=== PATIENT | male | born 1940 | race American Indian/Alaskan Native ===

== ENCOUNTER 2016-11-16 08:13 | Inpatient (IN) | payer MEDICARE, BC ==
[2016-11-16 08:46] LABS: HEMOGLOBIN 15.7 gm/dL (14.0-18.0); MEAN CORPUSCULAR HEMOGLOBIN 30.7 pg (25.0-35.0); MEAN CORPUSCULAR HGB CONC 34.1 g/dl (31.0-37.0); MEAN PLATELET VOLUME 8.8 fl (7.0-11.0); PLATELET COUNT 196 10^3/uL (120.0-450.0); RBC 5.12 10^6/uL (3.5-6.1); RED CELL DISTRIBUTION WIDTH 16.3 % (11.5-14.5); WHITE BLOOD COUNT 9.8 10^3/ul (4.5-11.0)
--- NOTE | 2016-11-16 08:48 | ED PDOC ---
Arrival/HPI - General Chief Complaint: Chest Pain Time Seen by Provider: 11/16/16 08:14 Historian: Patient, Family - History of Present Illness Narrative History of Present Illness (Text): 11/16/16 08:20 Darren Riggs is a 76 year old male, whose past medical history includes hypertension, prostate cancer in remission, and COPD, presents to the Emergency department complaining of chest pain that began this morning at around 06:30. Patient reports that he woke up, and while going up the stairs in his house he began to feel dullness and pressure on his chest. In addition to this he also had shortness of breath and dizziness. He states that the chest pain radiates to his left arm and at the moment it began the severity was at 6 out 10 pain, but is currently a 4 out 10. Patient notes that when using his rescue inhaler and massaged his chest, there was mild relief. Patient denies headache, fever, chills, cough, nausea, vomiting, diarrhea, diaphoresis, jaw pain, back pain, or other complaints. PMD: Dr. William Morris Time/Duration: 1-3 hours Symptom Onset: Sudden Symptom Course: Unchanged Quality: Pressure, Dullness (chest) Severity Level: 4 Activities at Onset: Light Modifying Factors (Text): None Context: Home Associated Symptoms (Text): dizziness and shortness of breath. pain radiates to left arm. Past Medical History - Provider Review Nursing Documentation Reviewed: Yes - Infectious Disease Hx of Infectious Diseases: None - Cardiac Hx Hypertension: Yes Hx Pacemaker: No - Pulmonary Hx Respiratory Disorders: No Hx Chronic Obstructive Pulmonary Disease (COPD): Yes Hx Sleep Apnea: Yes - Neurological Hx Paralysis: No - HEENT Hx HEENT Disorder: No - Renal Hx Renal Disorder: No - Hematological/Oncological Hx Blood Transfusions: No - Integumentary Hx Dermatological Disorder: No - Musculoskeletal/Rheumatological Hx Musculoskeletal Disorders: No - Gastrointestinal Hx Gastrointestinal Disorders: No - Genitourinary/Gynecological Hx Genitourinary Disorders: Yes Hx Prostate Problems: Yes - Psychiatric Hx Emotional Abuse: No Hx Physical Abuse: No Hx Substance Use: No - Anesthesia Hx Anesthesia Reactions: No Hx Malignant Hyperthermia: No - Suicidal Assessment Feels Threatened In Home Enviroment: No Family/Social History - Physician Review Nursing Documentation Reviewed: Yes Family/Social History: Unknown Family HX Smoking Status: Former Smoker Hx Alcohol Use: No Hx Substance Use: No Allergies/Home Meds Allergies/Adverse Reactions: Allergies No Known Allergies Allergy (Verified 06/17/15 14:03) Home Medications: Home Meds Medication Instructions Recorded Confirmed Tamsulosin [Flomax] 1 tab PO DAILY 06/17/15 11/16/16 Albuterol HFA [Ventolin HFA 90 1 puff IH BID 08/31/15 11/16/16 mcg/actuation (8 g)] Amlodipine Besylate [Norvasc] 5 mg PO DAILY 08/31/15 11/16/16 Ergocalciferol (Vitamin D2) 50,000 iu PO WED 08/31/15 11/16/16 [Vitamin D] Modafinil [Provigil] 200 mg PO PRN PRN 08/31/15 11/16/16 Unk Antibiotic 11/16/16 Review of Systems - Review of Systems Constitutional: absent: Fevers Eyes: absent: Vision Changes ENT: Normal Respiratory: SOB. absent: Cough Cardiovascular: Chest Pain Gastrointestinal: absent: Abdominal Pain, Nausea, Vomiting Genitourinary Male: Normal Musculoskeletal: Normal Skin: Normal Neurological: Dizziness. absent: Headache Endocrine: Normal Hemo/Lymphatic: Normal Psychiatric: Normal Physical Exam Vital Signs Reviewed: Yes Vital Signs Temp Pulse Resp BP Pulse Ox 11/16/16 13:15 109 H 18 184/61 H 92 L 11/16/16 10:22 100 H 17 162/97 H 97 11/16/16 08:13 97.5 F L 100 H 20 185/97 H 85 L Temperature: Afebrile Blood Pressure: Hypertensive Pulse: Tachycardic Respiratory Rate: Normal Appearance: Positive for: Well-Appearing, Non-Toxic, Comfortable Pain Distress: None Mental Status: Positive for: Alert and Oriented X 3 - Systems Exam Head: Present: Atraumatic, Normocephalic Pupils: Present: PERRL Extroacular Muscles: Present: EOMI Conjunctiva: Present: Normal Mouth: Present: Moist Mucous Membranes Neck: Present: Normal Range of Motion Respiratory/Chest: Present: Wheezes, Decreased Breath Sounds Cardiovascular: Present: Regular Rate and Rhythm, Normal S1, S2. No: Murmurs Abdomen: Present: Normal Bowel Sounds. No: Tenderness, Distention, Peritoneal Signs Upper Extremity: Present: Normal Inspection. No: Cyanosis, Edema Lower Extremity: Present: Edema (+1 edema bilateral extremities ), Erythema Neurological: Present: GCS=15, CN II-XII Intact, Speech Normal Skin: Present: Dry, Normal Color, Hot (left upper thigh). No: Rashes Medical Decision Making ED Course and Treatment: 11/16/16 08:20 Impression: 76 year old male with chest pain. Differential Diagnosis included but are not limited to: acute exacerbation of COPD vs. ACS vs. Pneumonia Plan: -- EKG -- Chest X-ray -- Ultrasound -- Labs -- Aspirin, Duoneb, and Solumedrol -- Reassess and disposition Progress Notes: EKG: Ordered, reviewed, and independently interpreted the EKG. Rate : 97 BPM Rhythm : NSR Interpretation : No ST-segment elevations or depressions, no T-wave inversions, normal intervals. 11/16/16 09:05 Chest X-ray: Creator : Courtney Massey V. COMPARISON: 10/08/2016 and 06/17/2015 FINDINGS: LUNGS: The linear opacity left inferolateral lung is consistent with possible fissural fluid and/or atelectatic changes. No interval change here is perceived with the 2 aforementioned exams. There is some angular opacity perceived in the right infrahilar region perhaps minimal fluid in the medial right minor fissure. No suspect consolidative infiltrate is appreciated. . PLEURA: No significant pleural effusion identified, no pneumothorax apparent. CARDIOVASCULAR: Cardiomegaly. Central pulmonary vasculature appears probably top -normal OSSEOUS STRUCTURES: No significant abnormalities. VISUALIZED UPPER ABDOMEN: Normal. OTHER FINDINGS: None. IMPRESSION: Cardiomegaly central pulmonary vasculature probably top-normal. Left basal ssubegmental atelectasis/ inferolateral pleural scarring /minimal fissural pleural fluid considerations. No suspect infiltrate 11/16/16 10:45 On re-evaluation, patient patients lungs were cleared, but developed chest pain and the second EKG was taken. I have discussed the results and plan with the patient, who expresses understanding. 11/16/16 13:17 PE noted on V/Q scan results and discussed with Dr. Rehman. He states high probability for PE. 11/16/16 14:54 Case was discussed with Dr. Looney who will admit to her service. Discussed case with Dr. Priyanka Hilton who evaluated patient and recommends Telemetry. Patient Seen With Resident: In agreement with resident note which contains more details about the patient. Patient was seen and evaluated with resident. Came up with plan and treatment together. - Lab Interpretations Lab Results: 11/16/16 08:30 11/16/16 08:30 Lab Results 11/16/16 12:57: pCO2 35, pO2 64.0 L, HCO3 17.6 L, ABG pH 7.31 L, ABG Total CO2 18.7 L, ABG O2 Saturation 94.8 L, ABG Base Excess -7.8 L, ABG Potassium 4.2, Glucose 224 H, Lactate 3.1 H, FiO2 36.0, Sodium 152.0 H, Chloride 92.0 L, Arterial Blood Potassium 4.2 11/16/16 11:40: Troponin I 0.14 H* D 11/16/16 08:30: D-Dimer, Quantitative 7.59 H 11/16/16 08:30: PT 10.7, INR 0.99, APTT 28.2 11/16/16 08:30: Sodium 139, Potassium 5.0, Chloride 102, Carbon Dioxide 27, Anion Gap 15, BUN 18, Creatinine 1.5 H, Est GFR ( Amer) 55, Est GFR (Non- Af Amer) 46, Random Glucose 135 H, Calcium 10.0, Magnesium 2.0, Total Bilirubin 0.6, AST 19, ALT 25, Alkaline Phosphatase 86, Lactate Dehydrogenase 613, Total Creatine Kinase 169, Troponin I 0.11 D, NT-Pro-B Natriuret Pep 168, Total Protein 7.6, Albumin 4.3, Globulin 3.2, Albumin/Globulin Ratio 1.3 11/16/16 08:30: WBC 9.8 D, RBC 5.12, Hgb 15.7, Hct 46.1, MCV 90.0, MCH 30.7, MCHC 34.1, RDW 16.3 H, Plt Count 196, MPV 8.8, Neutrophils % (Manual) 42 L, Lymphocytes % (Manual) 53 H, Atypical Lymphs % 2 H, Monocytes % (Manual) 3 I have reviewed the lab results: Yes - RAD Interpretation Radiology Orders: 11/16/16 08:23 CHEST PORTABLE [RAD] Stat 11/16/16 11:24 LUNG PERF & VENT SCAN [NM] Stat 11/16/16 13:35 DUPLEX LOWER EXTRM VEIN BILAT [US] Stat Catia Designer: Radiologist - EKG Interpretation Interpreted by ED Physician: Yes Type: 12 lead EKG - Medication Orders Current Medication Orders: Heparin Sodium/Dextrose (Heparin 25,000 Units/250ml In D5w) 25,000 units in 250 mls @ 21.065 mls/hr IV .[id number] PRN; Protocol; 18 UNITS/KG/HR PRN Reason: ADJUST RATE PER PROTOCOL Last Admin: 11/16/16 13:58 Dose: 21.065 mls/hr Sodium Chloride (Sodium Chloride 0.9%) 1,000 mls @ 100 mls/hr IV .Q10H JEFF Last Admin: 11/16/16 13:40 Dose: 100 mls/hr Discontinued Medications Albuterol/Ipratropium (Duoneb 3 Mg/0.5 Mg (3 Ml) Ud) 3 ml IH Q15M JEFF Stop: 11/16/16 09:31 Last Admin: 11/16/16 10:00 Dose: 3 ml Aspirin (Aspirin) 325 mg PO STAT STA Stop: 11/16/16 08:23 Last Admin: 11/16/16 08:43 Dose: 325 mg Heparin Sodium (Porcine) (Heparin) 8,800 units 80 units/kg (9400 units) IV ONCE ONE PRN Reason: Protocol Stop: 11/16/16 13:18 Last Admin: 11/16/16 13:39 Dose: 8,800 units Methylprednisolone (Solu-Medrol) 125 mg IVP STAT STA Stop: 11/16/16 08:47 Last Admin: 11/16/16 09:05 Dose: 125 mg - Scribe Statement The provider has reviewed the documentation as recorded by the Scribe 11/16/2016 Gretel aSenz Provider Scribe Attestation: All medical record entries made by the Scribe were at my direction and personally dictated by me. I have reviewed the chart and agree that the record accurately reflects my personal performance of the history, physical exam, medical decision making, and the department course for this patient. I have also personally directed, reviewed, and agree with the discharge instructions and disposition. Disposition/Present on Arrival - Present on Arrival Any Indicators Present on Arrival: No History of DVT/PE: No History of Uncontrolled Diabetes: No Urinary Catheter: No History of Decub. Ulcer: No History Surgical Site Infection Following: None - Disposition Have Diagnosis and Disposition been Completed?: Yes Diagnosis: Pulmonary embolism Disposition: HOSPITALIZED Disposition Time: 14:57 Patient Plan: Admission, Telemetry Condition: GUARDED Referrals: William Morris MD [Primary Care Provider] - Follow up with primary
[2016-11-16 08:57] LABS: INR 0.99 (0.93-1.08); PARTIAL THROMBOPLASTIN TIME 28.2 Seconds (23.7-30.8); PROTHROMBIN TIME 10.7 Seconds (9.9-11.8)
--- NOTE | 2016-11-16 09:02 | RAD ---
HISTORY: chest pain COMPARISON: 10/08/2016 and 06/17/2015 FINDINGS: LUNGS: The linear opacity left inferolateral lung is consistent with possible fissural fluid and/or atelectatic changes. No interval change here is perceived with the 2 aforementioned exams. There is some angular opacity perceived in the right infrahilar region perhaps minimal fluid in the medial right minor fissure. No suspect consolidative infiltrate is appreciated. . PLEURA: No significant pleural effusion identified, no pneumothorax apparent. CARDIOVASCULAR: Cardiomegaly. Central pulmonary vasculature appears probably top-normal OSSEOUS STRUCTURES: No significant abnormalities. VISUALIZED UPPER ABDOMEN: Normal. OTHER FINDINGS: None. IMPRESSION: Cardiomegaly central pulmonary vasculature probably top-normal. Left basal ssubegmental atelectasis/ inferolateral pleural scarring /minimal fissural pleural fluid considerations . No suspect infiltrate
[2016-11-16] MEDS: Albuterol-Ipratrop 3 mg / 0.5 (3 ml) UD IH SCH ×3 (09:06→10:00)
[2016-11-16 09:10] LABS: ATYPICAL LYMPHOCYTE 2 % (0.0-0.0); LYMPHOCYTE 53 % (22.0-35.0); MONOCYTE 3 % (1.0-6.0); NEUTROPHIL 42 % (50.0-70.0)
[2016-11-16 09:11] LABS: ALB/GLOB RATIO 1.3 (1.1-1.8); ALBUMIN 4.3 g/dL (3.0-4.8)
[2016-11-16 09:21] LABS: TROPONIN I 0.11 ng/mL
--- NOTE | 2016-11-16 12:41 | CARD ---
APPROVED REPORT EKG Measurement Heart [id number] [place] [id number] <Conclusion> Sinus tachycardia Possible Left atrial enlargement Nonspecific ST abnormality Abnormal ECG
--- NOTE | 2016-11-16 12:41 | CARD ---
APPROVED REPORT EKG Measurement Heart [id number] [id number] <Conclusion> Normal sinus rhythm Normal ECG
[2016-11-16 13:01] LABS: ARTERIAL BLOOD GAS HCO3 17.6 mmol/L (21-28); ARTERIAL BLOOD GAS O2 SAT 94.8 % (95-98); ARTERIAL BLOOD GAS PCO2 35 mm/Hg (35-45); ARTERIAL BLOOD GAS PH 7.31 (7.35-7.45); ARTERIAL BLOOD GAS TCO2 18.7 mmol.L (22-28)
--- NOTE | 2016-11-16 13:24 | NM ---
COMPARISON: Chest x-ray 11/16/2016 TECHNIQUE: 30.0 mCi technetium 99-m DTPA aerosol. 3.3 mCI technetium 99-m MAA administered intravenously. FINDINGS: VENTILATION COMPONENT: Normal. PERFUSION COMPONENT: Perfusion defects are seen in the left upper lobe and right lower lobe. There is no matching ventilation defect. Findings were discussed with Dr. Anthony at 1:15 p.m. IMPRESSION: High probability for pulmonary embolism
[2016-11-16] MEDS ORDERED: Sodium Chloride 0.9% 1,000 ML IV SCH (13:30)
[2016-11-16] MEDS: Heparin 25,000units in D5W 25,000 UNITS/250 ML BAG IV PRN (13:58)
--- NOTE | 2016-11-16 16:11 | CP.PCM.CON ---
<BLESSING HARKINS - Last Filed: 11/16/16 16:38> History of Present Illness - History of Present Illness History of Present Illness: 76M with PMH HTN, prostate cancer s/p radiation tx 2 years ago, COPD, sleep apnea, narcolepsy, presented to ED with worsening extertional dyspnea and chest pain that began this morning. Pt has had dyspnea while walking up the stairs, but felt it more today, partially relieved by rescue inhaler. Pt describes the chest pain as left sided, dull, radiating to left arm; denies hemoptysis, n/v/d , fever, jaw pain, chills, palpitations, diaphoresis, abdominal pain. Pt has had left leg swelling for past month, LE venous doppler done [address] Morris's office revealed no DVT. Pt now c/o left upper thigh pain, erythema, swelling. Denies recent hospitalizations/surgery, recent long travel. In ED, pt tachycardic HR 109, BP 184/61, 92% on 5L NC. Pt given solumedrol, duonebs, started on 5L NC. Labs significant for d-dimer 7.59, mildly elevated troponin 0.11->0.14, Cr 1.5. V/Q scan shows high probability for PE. ICU consulted for concern of hemodynamic instability, in the setting of newly found PE. 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 Past smoker, quit 20 years ago. Not on home O2. Drinks 1-2X/month. Review of Systems - Constitutional Constitutional: absent: Fever, Headache - Cardiovascular Cardiovascular: Chest Pain, Chest Pain with Activity, Dyspnea on Exertion, Pain Radiating to Arm/Neck/Jaw, Radiating Pain. absent: Diaphoresis, Palpitations - Respiratory Respiratory: Dyspnea on Exertion, Wheezing. absent: Hemoptysis - Gastrointestinal Gastrointestinal: absent: Abdominal Pain, Diarrhea, Nausea, Vomiting - Genitourinary Genitourinary: Difficulty Urinating, Urinary Incontinence - Neurological Neurological: absent: Headaches Past Patient History - Infectious Disease Hx of Infectious Diseases: None - Past Social History Smoking Status: Former Smoker - CARDIAC Hx Hypertension: Yes Hx Pacemaker: No - PULMONARY Hx Respiratory Disorders: No Hx Chronic Obstructive Pulmonary Disease (COPD): Yes Hx Sleep Apnea: Yes - NEUROLOGICAL Hx Paralysis: No - HEENT Hx HEENT Problems: No - RENAL Hx Chronic Kidney Disease: No - HEMATOLOGICAL/ONCOLOGICAL Hx Blood Transfusions: No - INTEGUMENTARY Hx Dermatological Problems: No - MUSCULOSKELETAL/RHEUMATOLOGICAL Hx Musculoskeletal Disorders: No - GASTROINTESTINAL Hx Gastrointestinal Disorders: No - GENITOURINARY/GYNECOLOGICAL Hx Genitourinary Disorders: Yes Hx Prostate Problems: Yes - PSYCHIATRIC Hx Emotional Abuse: No Hx Physical Abuse: No Hx Substance Use: No - SURGICAL HISTORY Hx Surgeries: Yes - ANESTHESIA Hx Anesthesia Reactions: No Hx Malignant Hyperthermia: No Meds Allergies/Adverse Reactions: Allergies Allergy/AdvReac Type Severity Reaction Status Date / Time No Known Allergies Allergy Verified 06/17/15 14:03 - Medications Medications: Current Medications Heparin Sodium/Dextrose (Heparin 25,000 Units/250ml In D5w) 25,000 units in 250 mls @ 21.065 mls/hr IV .[id number] PRN; Protocol; 18 UNITS/KG/HR PRN Reason: ADJUST RATE PER PROTOCOL Last Admin: 11/16/16 13:58 Dose: 21.065 mls/hr Sodium Chloride (Sodium Chloride 0.9%) 1,000 mls @ 100 mls/hr IV .Q10H JEFF Last Admin: 11/16/16 13:40 Dose: 100 mls/hr Physical Exam - Constitutional Appears: No Acute Distress - Head Exam Head Exam: ATRAUMATIC, NORMOCEPHALIC - Eye Exam Eye Exam: PERRL - ENT Exam ENT Exam: Mucous Membranes Moist - Respiratory Exam Respiratory Exam: Decreased Breath Sounds - Cardiovascular Exam Cardiovascular Exam: Tachycardia, +S1, +S2 - GI/Abdominal Exam GI & Abdominal Exam: Normal Bowel Sounds, Soft. absent: Guarding Additional comments: rounded, obese male - Extremities Exam Extremities exam: Negative for: calf tenderness, pedal edema Additional comments: L thigh, mild swelling, mild erythema, TTP - Neurological Exam Neurological exam: Alert, Oriented x3 - Psychiatric Exam Psychiatric exam: Normal Mood - Skin Skin Exam: Dry, Intact, Normal Color, Warm Results - Vital Signs Recent Vital Signs: Last Vital Signs Temp 97.5 F L 07/19/17 08:13 Pulse 109 H 11/16/16 15:08 Resp 18 11/16/16 15:08 BP 156/76 H 11/16/16 15:08 Pulse Ox 94 L 11/16/16 15:08 - Labs Result Diagrams: 11/16/16 08:30 11/16/16 08:30 - EKG Data EKG Interpreted by: ER Physician Assessment & Plan - Assessment and Plan (Free Text) Assessment: 76 M, with PMH COPD, prostate cancer, consulted ICU for concern of hemodynamic instability 2/2 newly found PE this admission. Pt maintaining his blood pressure , mildly tachycardic 109, on heparin drip, stable. Plan: Neuro: AAOx3. No mental status changes. Cont to monitor. CV: BP 162-187/61-97, hx of HTN, noncompliant on his meds. HR 100-109. HD stable. troponins 0.11->0.14, will trend. BNP 168. Obtain echocardiogram. Pulm: RR 17-20, on 5L NC, saturating well. D-dimer 7.59, V/Q scan shows high probability of PE. - will obtain LE US to r/o clot - C/w heparin drip Nephro: hx of prostate cancer, s/p radiation 2 years ago, has had urinary incontinence requiring diapers since. Cr 1.5, cont to monitor. Heme: No anemia, plts 196. cont to monitor. ID: afebrile, no leukocytosis. maintain normothermia. Dispo: can go to Telemetry Case discussed and seen with PGY2 and attending Dr Hilton. Blessing Harkins, PGY1 Please reconsult us in case of worsening status of patient, hemodynamic instability. - Date & Time Date: 11/16/16 Time: 14:00 <Yobani BUCKNER,Marcello H - Last Filed: 11/17/16 13:24> Meds - Medications Medications: Current Medications Amlodipine Besylate (Norvasc) 5 mg PO DAILY [facility] Last Admin: 11/17/16 10:30 Dose: 5 mg Heparin Sodium/Dextrose (Heparin 25,000 Units/250ml In D5w) 25,000 units in 250 mls @ 21.065 mls/hr IV .[id number] PRN; Protocol; 18 UNITS/KG/HR PRN Reason: ADJUST RATE PER PROTOCOL Last Admin: 11/17/16 03:00 Dose: 16 units/kg/hr, 18.724 mls/hr Ceftriaxone Sodium (Rocephin 1 Gram Ivpb) 1 gm in 100 mls @ 100 mls/hr IVPB DAILY [facility] PRN Reason: Protocol Levalbuterol HCl (Xopenex) 1.25 mg IH [id number] [facility] Last Admin: 11/17/16 13:15 Dose: 1.25 mg Methylprednisolone (Solu-Medrol) 40 mg IV Q12 [facility] Last Admin: 11/17/16 10:30 Dose: 40 mg Metoprolol Tartrate (Lopressor) 25 mg PO BID [facility] Last Admin: 11/17/16 10:30 Dose: 25 mg Pantoprazole Sodium (Protonix Ec Tab) 40 mg PO 0630 [facility] Last Admin: 11/17/16 05:38 Dose: 40 mg Results - Vital Signs Recent Vital Signs: Last Vital Signs Temp 97.4 F L 11/17/16 11:47 Pulse 88 11/17/16 11:47 Resp 20 11/17/16 11:47 BP 155/79 H 11/17/16 11:47 Pulse Ox 94 L 11/17/16 06:00 - Labs Result Diagrams: 11/17/16 03:55 11/17/16 03:55 Labs: Laboratory Results - last 24 hr 11/16/16 11/16/16 11/16/16 17:48 21:00 21:00 WBC RBC Hgb Hct MCV MCH MCHC RDW Plt Count MPV Gran % Lymph % (Auto) [place] % (Auto) Eos % (Auto) Baso % (Auto) Gran # Lymph # [place] # Eos # Baso # PT INR APTT 85.0 H* pO2 53 VBG pH 7.31 L VBG pCO2 43.0 VBG HCO3 21.7 VBG Total CO2 23.0 VBG O2 Sat (Calc) 90.2 H VBG Base Excess -4.5 L VBG Potassium 4.8 Sodium 135.0 Chloride 102.0 Glucose 252 H Lactate 4.0 H* FiO2 21.0 Potassium Carbon Dioxide Anion Gap BUN Creatinine Est GFR ( Amer) Est GFR (Non-Af Amer) Random Glucose Hemoglobin A1c Calcium Total Bilirubin AST ALT Alkaline Phosphatase Lactate Dehydrogenase Total Creatine Kinase Troponin I 0.26 H* D NT-Pro-B Natriuret Pep 1840 H Total Protein Albumin Globulin Albumin/Globulin Ratio Triglycerides 64 Cholesterol 140 LDL Cholesterol Direct 51 HDL Cholesterol 58 Prostate Specific Ag Free T4 TSH 3rd Generation Venous Blood Potassium 4.8 11/16/16 11/17/16 11/17/16 21:00 03:55 03:55 WBC 14.6 H D RBC 5.04 Hgb 15.1 Hct 43.9 MCV 87.1 MCH 30.0 MCHC 34.4 RDW 16.5 H Plt Count 236 MPV 9.4 Gran % 55.7 Lymph % (Auto) 38.7 H [place] % (Auto) 4.9 Eos % (Auto) 0.5 L Baso % (Auto) 0.2 Gran # 8.14 H Lymph # 5.7 H [place] # 0.7 H Eos # 0.1 Baso # 0.03 PT 11.3 INR 1.05 APTT 74.2 H* pO2 37 VBG pH 7.34 VBG pCO2 39.0 L VBG HCO3 21.0 VBG Total CO2 22.2 VBG O2 Sat (Calc) 76.0 H VBG Base Excess -4.4 L VBG Potassium 5.2 Sodium 153.0 H Chloride 90.0 L Glucose 249 H Lactate 3.1 H FiO2 21.0 Potassium Carbon Dioxide Anion Gap BUN Creatinine Est GFR ( Amer) Est GFR (Non-Af Amer) Random Glucose Hemoglobin A1c Calcium Total Bilirubin AST ALT Alkaline Phosphatase Lactate Dehydrogenase Total Creatine Kinase Troponin I NT-Pro-B Natriuret Pep Total Protein Albumin Globulin Albumin/Globulin Ratio Triglycerides Cholesterol LDL Cholesterol Direct HDL Cholesterol Prostate Specific Ag Free T4 TSH 3rd Generation Venous Blood Potassium 5.2 11/17/16 11/17/16 11/17/16 03:55 03:55 06:00 WBC RBC Hgb Hct MCV MCH MCHC RDW Plt Count MPV Gran % Lymph % (Auto) [place] % (Auto) Eos % (Auto) Baso % (Auto) Gran # Lymph # [place] # Eos # Baso # PT INR APTT pO2 VBG pH VBG pCO2 VBG HCO3 VBG Total CO2 VBG O2 Sat (Calc) VBG Base Excess VBG Potassium Sodium 136 Chloride 104 Glucose Lactate FiO2 Potassium 4.7 Carbon Dioxide 22 Anion Gap 15 BUN 19 Creatinine 1.3 Est GFR ( Amer) > 60 Est GFR (Non-Af Amer) 54 Random Glucose 214 H Hemoglobin A1c 7.0 H Calcium 9.5 Total Bilirubin 0.5 AST 33 ALT 29 Alkaline Phosphatase 70 Lactate Dehydrogenase Total Creatine Kinase Troponin I NT-Pro-B Natriuret Pep Total Protein 7.3 Albumin 3.9 Globulin 3.4 Albumin/Globulin Ratio 1.1 Triglycerides Cholesterol LDL Cholesterol Direct HDL Cholesterol Prostate Specific Ag 0.5 Free T4 0.81 TSH 3rd Generation 0.64 Venous Blood Potassium 11/17/16 11/17/16 07:33 10:55 WBC RBC Hgb Hct MCV MCH MCHC RDW Plt Count MPV Gran % Lymph % (Auto) [place] % (Auto) Eos % (Auto) Baso % (Auto) Gran # Lymph # [place] # Eos # Baso # PT INR APTT 63.1 H pO2 VBG pH VBG pCO2 VBG HCO3 VBG Total CO2 VBG O2 Sat (Calc) VBG Base Excess VBG Potassium Sodium Chloride Glucose Lactate FiO2 Potassium Carbon Dioxide Anion Gap BUN Creatinine Est GFR ( Amer) Est GFR (Non-Af Amer) Random Glucose Hemoglobin A1c Calcium Total Bilirubin AST ALT Alkaline Phosphatase Lactate Dehydrogenase 561 Total Creatine Kinase 181 Troponin I 0.26 H* NT-Pro-B Natriuret Pep Total Protein Albumin Globulin Albumin/Globulin Ratio Triglycerides 71 Cholesterol 148 LDL Cholesterol Direct 60 HDL Cholesterol 57 Prostate Specific Ag Free T4 TSH 3rd Generation Venous Blood Potassium Attending/Attestation - Attestation I have personally seen and examined this patient.: Yes I have fully participated in the care of the patient.: Yes I have reviewed all pertinent clinical information: Yes Notes (Text): 11/17/16 13:22 76 y/o M w/ New likely VTE. V/Q high probability in a high risk patient with hx of Prostate ca. L lower ext swelling and pain, r/o DVT Started on heparin drip. Would hydrate w/ IV fluids and then do CT chest P.E protocol . ECHO ordered . Clinically improving without distress. Needs hypercoag work up by primary. cc time 65 min
--- NOTE | 2016-11-16 16:16 | US ---
HISTORY: Leg pain and swelling. Evaluate for DVT PHYSICIAN(S): Choco Black MD. TECHNIQUE: Duplex sonography and color-flow Doppler with graded compression were used to evaluate the deep venous systems of both lower extremities. FINDINGS: The visualized deep venous systems of both lower extremities are sonographically normal and compressible. Normal wave forms and augmentation are seen. There is no sonographic evidence for deep venous thrombosis in the visualized segments of both lower extremities. IMPRESSION: No sonographic evidence for deep venous thrombosis in the visualized segments of both lower extremities.
[2016-11-16 17:54] LABS: VENOUS BLOOD GAS BASE EXCESS -4.5 mmol/L (0.0-2.0); VENOUS BLOOD GAS PO2 53 mm/Hg (30-55); VENOUS BLOOD PH 7.31 (7.32-7.43)
[2016-11-16 18:38] VITALS: BMI 41.6
[2016-11-16] MEDS: Levalbuterol 1.25 MG/3 ML Inhal Soln UD IH SCH (21:09)
[2016-11-16 21:12] LABS: VENOUS BLOOD GAS BASE EXCESS -4.4 mmol/L (0.0-2.0); VENOUS BLOOD GAS PO2 37 mm/Hg (30-55); VENOUS BLOOD PH 7.34 (7.32-7.43)
[2016-11-16] MEDS: MethylPREDNISolone 40 mg Vial IV SCH (21:15)
[2016-11-16 21:33] LABS: TROPONIN I 0.26 ng/mL
[2016-11-16] MEDS ORDERED: Oxycodone/Acetaminophen 5/325 mg Tab PO STA (22:07)
[2016-11-17] MEDS: Levalbuterol 1.25 MG/3 ML Inhal Soln UD IH SCH ×4 (01:48→19:54)
[2016-11-17] MEDS: Heparin 25,000units in D5W 25,000 UNITS/250 ML BAG IV PRN ×2 (03:00→17:30)
[2016-11-17 04:23] LABS: ALB/GLOB RATIO 1.1 (1.1-1.8); ALBUMIN 3.9 g/dL (3.0-4.8); ALT/SGPT 29 U/L (7-56); AST/SGOT 33 U/L (15-59); BLOOD UREA NITROGEN 19 mg/dL (7-21); CALCIUM 9.5 mg/dL (8.4-10.5); GFR AFRICAN-AMERICAN > 60; GFR NON-AFRICAN AMERICAN 54
[2016-11-17 04:33] LABS: BASO # 0.03 K/mm3 (0.0-2.0); BASO % 0.2 % (0.0-3.0); EOS # 0.1 (0.0-0.7); EOS % 0.5 % (1.5-5.0); GRAN # 8.14 (1.4-6.5); GRAN % 55.7 % (50.0-68.0); HEMOGLOBIN 15.1 gm/dL (14.0-18.0); LYMPH # 5.7 (1.2-3.4); LYMPH % 38.7 % (22.0-35.0); MEAN CELL VOLUME 87.1 fL (80.0-105.0); MEAN CORPUSCULAR HGB CONC 34.4 g/dl (31.0-37.0); MEAN PLATELET VOLUME 9.4 fl (7.0-11.0); MONO # 0.7 (0.1-0.6); MONO % 4.9 % (1.0-6.0); PLATELET COUNT 236 10^3/uL (120.0-450.0); RBC 5.04 10^6/uL (3.5-6.1); RED CELL DISTRIBUTION WIDTH 16.5 % (11.5-14.5); WHITE BLOOD COUNT 14.6 10^3/ul (4.5-11.0)
[2016-11-17 04:40] LABS: FREE T4 0.81 ng/dL (0.78-2.19)
[2016-11-17 04:47] LABS: INR 1.05 (0.93-1.08); PROTHROMBIN TIME 11.3 Seconds (9.9-11.8)
[2016-11-17 04:50] LABS: PARTIAL THROMBOPLASTIN TIME 74.2 Seconds (23.7-30.8)
[2016-11-17] MEDS: Pantoprazole 40 mg EC Tab PO SCH (05:38)
--- NOTE | 2016-11-17 06:47 | HP ---
HISTORY OF PRESENT ILLNESS: The patient is 76 years old, known to me from previous admission, came to emergency room because of increasing shortness of breath. He was having chest discomfort that started this morning. The patient states he gets short of breath on minimal exertion, but this morning, his shortness of breath got unusually more pronounced. He did try to use his usual medication including inhaler with no significant relief. He described discomfort as chest pressure and shortness of breath radiating to the left arm. He does not have history of fever or chills. No nausea or vomiting. No diarrhea. No hemoptysis. No hematemesis. The patient does complain of pain in the left thigh area going on for a few weeks. He went to see Dr. Morris, who ordered neck Doppler and was told there is no blood clot in that. He denies any prolonged sitting and travel or recent foot or leg surgery. Denies any nausea or vomiting. The patient was evaluated in the emergency room. His leg Doppler was negative. D-dimers are high, so he had CT angio done that was positive for pulmonary embolism, so the patient was evaluated by ICU team, but was declined to be accepted in ICU, so being admitted on telemetry. PAST MEDICAL HISTORY: Significant for: 1. Hypertension. 2. Morbid obesity. 3. COPD. 4. Sleep apnea. 5. Narcolepsy. 6. History of CA prostate that was diagnosed 2 years ago, status post radiation therapy. ALLERGIES: NOT ALLERGIC TO ANY MEDICATIONS. SOCIAL HISTORY: He worked as an histologic technician. He used to be a heavy smoker, quit 20 years ago. Socially drinks. MEDICATIONS AT HOME: He is on Symbicort, vitamin D, Zithromax, amlodipine 5 mg daily and Uroxatral. REVIEW OF SYSTEMS: Significant for chest discomfort and shortness of breath. PHYSICAL EXAMINATION: GENERAL: He is awake and alert, communicative, mild shortness of breath. VITAL SIGNS: He is afebrile, pulse 109, respirations 18 and blood pressure 156/76. LUNGS: Bilateral few expiratory rhonchi. HEART: S1 and S2 audible. ABDOMEN: Soft, obese and nontender. No rebound. No guarding. NEUROLOGIC: The patient is awake and alert, communicative. EXTREMITIES: Bilateral legs, no edema. LABORATORY DATA: WBC 9.8, hemoglobin 15.7, hematocrit 46, platelet of 196. D-dimer is 7.59. PT 10.7 and INR 0.99. ABG; pH of 7.31, pCO2 of 43, pulse ox 90%. Sodium 139, potassium 5.0, chloride 102, CO2 of 27, BUN 18, creatinine 1.5, blood sugar 135, troponin 0.14. Leg Doppler negative for DVT. V/Q scan positive, high probability for pulmonary embolism. ASSESSMENT: 1. Positive D-dimer, exertional dyspnea, chest discomfort, tachycardia, hypoxia, and high probability of V/Q scan. 2. Hypertension. 3. Morbid obesity. 4. Obstructive sleep apnea. PLAN: The patient is being admitted on telemetry. We will start him on heparin. Cardiology consult will be requested. I will consult Dr. Bolden for coagulation workup and will start him on nebulizer treatment, and I will order for procalcitonin for low PT/INR. We will re-evaluate this patient in a.m. Shyam Looney MD
[2016-11-17 08:13] LABS: TROPONIN I 0.26 ng/mL
[2016-11-17] MEDS: MethylPREDNISolone 40 mg Vial IV SCH ×2 (10:30→21:31)
[2016-11-17] MEDS: cefTRIAXone 1 gm 1 GM/100 ML BAG IVPB SCH (13:33)
--- NOTE | 2016-11-17 14:51 | PN ---
DATE: 11/17/2016 SUBJECTIVE: The patient is 76 years old, seen and examined, states he is feeling a lot better, much less shortness of breath, no chest pain, still has left thigh discomfort on the anteromedial aspect, not much shortness of breath. PHYSICAL EXAMINATION: VITAL SIGNS: He is afebrile, pulse 88, respiration 20, and blood pressure 155/79. LUNGS: Bilateral occasional expiratory rhonchi. HEART: S1 and S2 audible. ABDOMEN: Soft, obese and nontender. No rebound. No guarding. NEUROLOGIC: The patient is awake and alert, able to move all extremities. LABORATORY DATA: WBC is 14.6, hemoglobin 15, hematocrit 43, platelet 236, PTT is 36.1. Chemistries: Sodium 136, potassium 4.7, chloride 104, CO2 of 22, BUN 19, creatinine 1.3, blood sugar of 214, hemoglobin A1c is 7.0, troponin is 0.26. Blood cultures are negative. ASSESSMENT AND PLAN: 1. High probability nuclear scan. 2. Improving shortness of breath. 3. Leukocytosis, probably secondary to steroid. 4. Chronic obstructive pulmonary disease. 5. Morbid obesity. 6. Non-insulin dependent diabetes. 7. Hypertension. 8. Positive troponin probably secondary to demand ischemia. PLAN: Currently the patient is on heparin, amlodipine and prednisone. We will do echocardiogram and Dr. Morales has been consulted. I leave it up to Dr. Bolden to decide if we have to start Coumadin or Eliquis according to that once we find out we have to determine the reason for coagulopathy. The patient does state that a few weeks ago, he did have a blister in his left but he denies that he was sitting around for too long, he did not have a long travel history or any surgical intervention to his extremities; however, work up has been order by Dr. Bolden, that will be followed. In the meantime, we have to switch him to p.o. anticoagulant, that will be decided by clinical trial manager and we will make further recommendation. Shyam Looney MD [facility] # [id number]
--- NOTE | 2016-11-17 16:00 | CARD ---
APPROVED REPORT EXAM: Two-dimensional and M-mode echocardiogram with Doppler and color Doppler. INDICATION PULMONARY EMBOLISM/POSITIVE TROPONIN 2D DIMENSIONS Left Atrium (2D)3.7 (1.6-4.0cm)IVSd1.5 (0.7-1.1cm) LVDd4.3 (3.9-5.9cm)PWd1.6 (0.7-1.1cm) LVDs2.5 (2.5-4.0cm)FS (%) 41.0 % LVEF (%)72.2 (>50%) M-Mode DIMENSIONS Aortic Root3.10 (2.2-3.7cm)Aortic Cusp Exc.1.90 (1.5-2.0cm) Aortic Valve AoV Peak Ybzuxnbr253.0cm/Ang Peak GR.13mmHg Mitral Valve MV E Iczvxarr12.8cm/sMV A Hmxrfybx815.0cm/sE/A ratio0.8 TDI Lateral E' Peak V9.75cm/sMedial E' Peak V7.60cm/sE/Lateral E'8.3 E/Medial E'10.6 Pulmonary Valve PV Peak Zxdydrxx52.8cm/sPV Peak Grad.2mmHg Tricuspid Valve TR Peak Dzcwvkam498ag/sRAP QUPTXRSY38zqKqPP Peak Gr.78mmHg [id number] LEFT VENTRICLE The left ventricle is normal size. There is mild to moderate concentric left ventricular hypertrophy. The left ventricular function is normal.EF-65-70% There is normal LV segmental wall motion. Transmitral Doppler flow pattern is Grade III-reversible restrictive diastolic dysfunction. No left ventricle thrombus noted on this study. There is no ventricular septal defect visualized. There is no left ventricular aneurysm. There is no mass noted in the left ventricle. RIGHT VENTRICLE The right ventricle is mildly dilated. There is normal right ventricular wall thickness. Systolic function of Rv is mildly to moderately reduced. ATRIA The left atrium size is normal. The right atrium size is normal. The interatrial septum is intact with no evidence for an atrial septal defect. AORTIC VALVE The aortic valve is calcified but opens well. There is trace aortic regurgitation. There is no aortic valvular stenosis. There is no aortic valvular vegetation. MITRAL VALVE The mitral valve is thickened but opens well. Mitral regurgitation is mild. There is no mitral valve stenosis. There is no evidence of mitral valve prolapse. TRICUSPID VALVE The tricuspid valve leaflets are thickened , but open well. There is moderate to severe tricuspid regurgitation.RVSP-88 mmof Hg. There is severe pulmonary hypertension. There is no tricuspid valve stenosis. There is no tricuspid valve prolapse or vegetation. PULMONIC VALVE The pulmonic valve is mildly thickened. There is mild to moderate pulmonic valvular regurgitation. There is no pulmonic valvular stenosis. GREAT VESSELS The ascending aorta is normal in size. The pulmonary artery is normal. The IVC is normal in size and collapses >50% with inspiration. PERICARDIAL EFFUSION There is no pleural effusion. There is no pericardial effusion. <Conclusion> The left ventricle is normal size. There is mild to moderate concentric left ventricular hypertrophy. The left ventricular function is normal.EF-65-70% The right ventricle is mildly dilated. Systolic function of Rv is mildly to moderately reduced. There is trace aortic regurgitation. Mitral regurgitation is mild. There is moderate to severe tricuspid regurgitation.RVSP-88 mmof Hg. There is severe pulmonary hypertension. The IVC is normal in size and collapses >50% with inspiration. There is no pericardial effusion. no vegetation or thrombus noted.
[2016-11-18] MEDS: Levalbuterol 1.25 MG/3 ML Inhal Soln UD IH SCH ×4 (01:10→19:25)
[2016-11-18] MEDS: Pantoprazole 40 mg EC Tab PO SCH (05:39)
[2016-11-18 06:50] LABS: HEMOGLOBIN 14.8 gm/dL (14.0-18.0); MEAN CELL VOLUME 88.2 fL (80.0-105.0); MEAN CORPUSCULAR HEMOGLOBIN 30.2 pg (25.0-35.0); MEAN CORPUSCULAR HGB CONC 34.3 g/dl (31.0-37.0); MEAN PLATELET VOLUME 9.4 fl (7.0-11.0); PLATELET COUNT 228 10^3/uL (120.0-450.0); RED CELL DISTRIBUTION WIDTH 16.8 % (11.5-14.5); WHITE BLOOD COUNT 15.7 10^3/ul (4.5-11.0)
[2016-11-18 07:04] LABS: ALB/GLOB RATIO 1.3 (1.1-1.8); ALT/SGPT 28 U/L (7-56); AST/SGOT 32 U/L (15-59); BLOOD UREA NITROGEN 24 mg/dL (7-21); CALCIUM 9.2 mg/dL (8.4-10.5); GFR AFRICAN-AMERICAN > 60; GFR NON-AFRICAN AMERICAN 54; MAGNESIUM 2.4 mg/dL (1.7-2.2)
[2016-11-18 08:59] LABS: NEUTROPHIL 51 % (50.0-70.0)
[2016-11-18 09:00] LABS: BAND 3 % (0-2); LYMPHOCYTE 45 % (22.0-35.0); MONOCYTE 1 % (1.0-6.0); PLATELET ESTIMATE NORMAL (NORMAL)
[2016-11-18] MEDS: cefTRIAXone 1 gm 1 GM/100 ML BAG IVPB SCH (09:46)
[2016-11-18] MEDS: Heparin 25,000units in D5W 25,000 UNITS/250 ML BAG IV PRN (09:50)
[2016-11-18] MEDS: MethylPREDNISolone 40 mg Vial IV SCH ×2 (10:05→21:20)
--- NOTE | 2016-11-18 11:08 | CON ---
DATE: 11/17/2016 REASON FOR CONSULTATION: Shortness of breath, cardiac evaluation, suspicious for PE. BRIEF CLINICAL HISTORY: This is a 76-year-old obese male with past medical history significant for hypertension, COPD, sleep apnea, narcolepsy, history of prostate CA 2 years ago status post radiation and chemo, admitted with shortness of breath progressive worsening over 2-3 days. Denies any chest pain, shortness of breath, any palpitation. Patient had a VQ scan on admission. Creatinine is 1.5. Patient had troponin positive. Cardiology consult was called. Patient denies any chest pain. PAST MEDICAL HISTORY: Significant for hypertension, prostate CA, obesity. Previous cardiac workup as follows: Patient had stress test on 06/18/2015, and that she has probably no myocardial perfusion study, fixed defect most likely secondary to diaphragm with continuation of ejection fraction at 68% dated 06/18/2015. Patient had echocardiography dated 06/18/2015 that showed an ejection fracture of 55%. Mild mitral regurgitation to mild tricuspid regurgitation, RV systolic pressure of 28, mild pulmonary insufficiency. Patient had a cardiac catheterization done by Dr. Santos Cardoso on 09/02/2015 that revealed normal systolic function, elevated EDP dated 09/02/[address] Cardoso. CURRENT MEDICATIONS: Patient taking Symbicort, azithromycin, amlodipine, UroXatral. ALLERGIES: No known drug allergy. REVIEW OF SYSTEMS: As per HPI. PHYSICAL EXAMINATION: As follow VITAL SIGNS: Temperature afebrile, heart rate 88, blood pressure 148/89. Height of the patient is 5 feet 6 inches, weight of the patient 251 pounds, body mass index 41.2 kg/sq m. Rest of the examination as follows: HEENT: PERRLA intact. NECK: Supple. No carotid bruit. No thyromegaly. CHEST: Clear to auscultation. HEART: S1 and S2, regular. ABDOMEN: Soft. EXTREMITIES: Clubbing and cyanosis negative. DATA: EKG with some sinus tachycardia. Blood workup as follows: WBC 14.6, hemoglobin 15.6, hematocrit 43.9, and platelet count 236. Chemistry shows sodium 132, potassium 4.7, chloride 104, carbon dioxide 22, anion gap of 15.19, creatinine is 1.3. Troponin 0.26 and 0.26. BNP elevated. IMPRESSION: The patient is a 76-year-old male with past medical history significant for diabetes, hypertension, hyperlipidemia, morbid obesity, chronic obstructive pulmonary disease, obstructive sleep apnea, history of cardiac catheterization on 09/02/2015 with normal coronaries, preserved LV function, history of prior normal stress test 06/18/2015, history of echo, normal LV function, ejection fraction of 55%, trace tricuspid regurgitation, mild mitral regurgitation, trace to mild tricuspid regurgitation. RV systolic pressure of 28. Admitted with sinus tachycardia, shortness of breath, lung sketch with high probability of PE, and D-dimer was positive. This positive troponin is secondary to RV strain and RV ischemia because of acute PE. We will follow the trend of CPK troponin; if the trend is down, probably no further workup or definitely he will get echo to asses RV function and tricuspid valve regurgitation. He denies systolic pressure. He denies systolic pressure. In the interim, continue heparin and monitor electrolytes, lipid profile, TSH, hemoglobin A1c. Thank you Dr. Looney for providing the opportunity in taking care of patient Darren Riggs. We will follow with you. Guerita Kern MD cc: MD Shyam Russo MD
--- NOTE | 2016-11-18 12:10 | CT ---
PROCEDURE: CT Chest without contrast HISTORY: pn, atelectasis, necrois. compare to previous +PE COMPARISON: Chest x-ray 11/07/2016. Prior chest CT 08/28/2012 TECHNIQUE: Contiguous axial images were obtained through the chest without intravenous contrast enhancement. Sagittal and coronal reconstructions were performed. Radiation dose (DLP): 1135 mGy-cm. This CT exam was performed using one or more of the following dose reduction techniques: Automated exposure control, adjustment of the mA and/or kV according to patient size, and/or use of iterative reconstruction technique. FINDINGS: LUNGS: Emphysematous changes with bulla in the periphery of the upper lobes. There is an 8 x 22 mm mass in the superior segment of the left upper lobe seen on image 54 series 4. This was not present on the previous CT and is not visible on the chest x-ray. Followup is recommended to rule out neoplastic lesion. . Linear scarring is seen in both lung bases MEDIASTINUM: Unremarkable thoracic aorta. No aneurysm. Normal sized heart. Main pulmonary artery unremarkable. No vascular congestion. Mildly enlarged lymph nodes are seen in both axilla PLEURA: No pleural fluid. No pneumothorax. BONES: No fracture. No destructive lesion. UPPER ABDOMEN: Grossly unremarkable. OTHER FINDINGS: Coronary artery calcification IMPRESSION: There is an 8 x 22 mm mass in the superior segment of the left upper lobe . This was not present on the previous CT and is not visible on the chest x-ray. Followup is recommended to rule out neoplastic lesion. .
--- NOTE | 2016-11-18 13:16 | CON ---
DATE: 11/17/2016 REASON FOR CONSULTATION: Bilateral PE. HISTORY OF PRESENT ILLNESS: Mr. Riggs is a 76-year-old male admitted to the hospital with chest pain and shortness of breath. He has underlying COPD. He felt the shortness of breath is more. He could not walk few steps and could not go upstairs in his bedroom. His creatinine was elevated on admission to 1.5. Ventilation perfusion scan showed perfusion defect bilaterally in both lungs. He was started on IV heparin. He still has chest pain, retrosternal. His shortness of breath has improved little bit since admission. No fever. No nausea. No vomiting. Doppler of lower extremity did not show any DVT. He also had swelling of the left leg up to the thigh, which developed suddenly. He has hypertension, blood pressure controlled on current medications. He has COPD, he sees Dr. Morales of Pulmonary for that. He has enlarged prostate. No active issues right now. PAST MEDICAL HISTORY: COPD, hypertension, and BPH. PAST SURGICAL HISTORY: None. ALLERGIES: NO KNOWN DRUG ALLERGIES. PERSONAL HISTORY: Former smoker. No history of alcohol abuse. SOCIAL HISTORY: Lives at home with . HOME MEDICATIONS: 1. Flomax 1 tablet daily. 2. Ventolin 1 puff b.i.d. 3. Amlodipine 5 mg daily. 4. Vitamin D. REVIEW OF SYSTEMS: As per HPI. Rest of 12-point review of systems is reviewed and negative. PHYSICAL EXAMINATION: GENERAL: Comfortable in bed in no acute distress. VITAL SIGNS: Temperature 97.5, heart rate 100 per minute, respiratory rate 20 per minute, blood pressure 160/90, pulse oximetry is 98% on room oxygen by nasal cannula. HEENT: Normal. NECK: Supple. No lymphadenopathy. CARDIOPULMONARY: S1 and S2 normal. No murmur. No gallop. LUNGS: Chest air entry present and equal bilateral. No added sounds. No crepitation. No rhonchi. ABDOMEN: Soft and nontender. No hepatosplenomegaly. EXTREMITIES: Lower extremity: Left thigh is larger than the right, no tenderness. No calf tenderness. SKIN: Intact. CENTRAL NERVOUS SYSTEM: Alert and oriented x3. No focal sensory or motor deficit. LABORATORY DATA: White count 9.8, hemoglobin 15.7,hematocrit 46.1, and platelets 196. Sodium 139, potassium 5, BUN 18, creatinine 1.5, declined to 1.3, neutrophil 42%, lymphocytes 53%, and atypical lymphocytes 2%. Imaging as per HPI. ASSESSMENT: 1. Acute pulmonary embolism. 2. Hypertension. 3. Chronic obstructive pulmonary disease. 4. Left leg swelling. PLAN: He has high probability VQ scan with perfusion defect. CAT scan could not be done because of elevated creatinine. He is currently on heparin drip almost for past 24 hours. We will start Coumadin 10 mg daily. We will consider CAT scan of the chest, when creatinine will be at baseline. He has leukocytosis with elevated white count of 15,000. It might be due to underlying COPD. He is on IV antibiotics with ceftriaxone 1 g daily and he is on bronchodilators and Solu-Medrol also for shortness of breath. Blood pressure controlled on Norvasc 10 mg daily. Hypercoagulable workup ordered. Factor V Leiden, MTHFR gene mutation, protein C, protein S activity level, LINDA, lupus anticoagulant, and prothrombin gene mutation. He will need anticoagulation for at least 1 year, if thrombophilia workup is negative. If he has positive thrombophilia workup, duration might be lifelong. Discussed with the patient, discussed with the staff nurse. We will continue to monitor blood counts. Alicia Bolden MD
--- NOTE | 2016-11-18 13:20 | PN ---
DATE OF EVALUATION: 11/18/2016 SUBJECTIVE: He is comfortable in bed, in no acute distress. Shortness of breath has decreased since admission. He is currently on heparin drip. Coumadin was started last night. Thrombophilia workup is pending. Blood pressure controlled on current medications. He had a CAT scan of the chest done today; results are pending. No fever. No chest pain. CURRENT MEDICATIONS: Norvasc 5 mg daily, Pulmicort 0.5 mg inhalation, ceftriaxone 1 g daily, heparin drip, Xopenex, Solu-Medrol 20 mg q. 12, metoprolol 25 mg b.i.d., Protonix 40 mg daily, Coumadin 10 mg daily. REVIEW OF SYSTEMS: As per HPI. A 12-point review of systems reviewed and negative. PHYSICAL EXAMINATION: GENERAL: Comfortable in bed, in no acute distress. VITAL SIGNS: Temperature 98.2, heart rate is 66 per minute, blood pressure 147/96, respiratory rate 19 per minute, oxygen saturation 98% on oxygen via nasal cannula. HEENT: Normal. NECK: No lymphadenopathy. CHEST: Air entry present and equal bilaterally. No added sounds. CARDIOVASCULAR: S1 and S2 normal. No murmur, no gallop. ABDOMEN: Soft and nontender. No hepatosplenomegaly. EXTREMITIES: No edema. CENTRAL NERVOUS SYSTEM: Alert and oriented x3. No focal sensory or motor deficit. SKIN: Intact. SPINE: Nontender. LABORATORY DATA: White count 15.7, hemoglobin 14.8, hematocrit 43.2, platelet 228. Sodium 137, potassium 5, glucose 159, creatinine 1.3, troponin 0.28, *------* 0.5, bilirubin 0.5, AST 33, ALT 29, alkaline phosphatase 70, LDH 561. ASSESSMENT: 1. Bilateral pulmonary embolism. 2. Hypertension. 3. Left leg swelling. 4. Chronic obstructive pulmonary disease. 5. Non-ST elevation myocardial infarction elevated cardiac enzyme. PLAN: Continue heparin drip. We will repeat the INR tomorrow. In cardiology consultation Dr. Kern requested for elevated troponin. CAT scan of the chest was done today, results pending. Thrombophilia workup is pending. Shortness of breath has improved. Blood count showed leukocytosis likely due to steroids. We will continue to monitor blood counts. Hemoglobin and hematocrit is stable. Renal functions improved. Creatinine is 1.3. On admission it was 1.5. Electrolytes normal. Thank you Dr. Looney for allowing us to participate in the patient's care. Alicia Bolden MD [facility]TD[facility]
--- NOTE | 2016-11-18 14:33 | CON ---
PULMONARY CONSULTATION DATE OF CONSULTATION: 11/18/2016 HISTORY OF PRESENT ILLNESS: Mr. Riggs is known to me from one previous visit in the office at which time he complained a history of possible narcolepsy and or sleep apnea, tests were being ordered and these have yet to be completed. In the mean time, the patient was also found to have COPD with air trapping. He was given bronchodilator, beta-agonist, inhaled corticosteroid and anticholinergics. He states that after using these medications, he is markedly improved and he is happy that we have noticed his problem. He had been doing well until two days ago when he had sudden onset of acute shortness of breath and chest pain, came to the emergency room and although the shortness of breath had been there prior to the medication, the chest pain was felt to the very severe. He had no history of fever or chills, nausea or vomiting. There is no hemoptysis. He was seen by the ER staff who found that venous stop was were negative, but the ventilation perfusion scan of the lung showed one large clot, still unusual for pulmonary embolism, but probably the same. In addition, the patient had leg problems over the last few months with excoriation and infection and severe pain. The Doppler here in the emergency room is negative, but the patient describes pain more in the inguinal area, which may represent the higher clot and can be visualized by the Doppler scan. PAST MEDICAL HISTORY: Includes hypertension, morbid obesity, COPD, sleep apnea, and narcolepsy. He has had CA of the prostate two years ago status post radiation therapy. ALLERGIES: NONE. SOCIAL HISTORY: Long time smoker, quit 20 years ago. Social drink and no other problems. No travel history and no occupational exposure. FAMILY HISTORY: Noncontributory. No clots in his family and no bleeding diathesis. HOME MEDICATIONS: Include Symbicort, Spiriva, Zithromax, and amiodarone. REVIEW OF SYSTEMS: Has been discussed through the work above. There were no other symptoms other than that which I have already described. The patient had complained more of the leg problems of late than before. Please note that there is no evidence of any bleeding problems, hypercoagulable state either in the patient or family. He does have cancer of the prostate, which can be precursor to pulmonary emboli. In addition, his leg may, however, a deep vein clot that does not appear on the lower area seen by the venous Doppler, all of these need to be considered when further evaluating this patient. Shortness of breath, chest pain, sudden onset. No abdominal pains, no urinary frequency, no swelling of extremities, no rashes, no memory loss. All other systems negative. PHYSICAL EXAMINATION: GENERAL: He is resting comfortable and in no acute respiratory distress. At this time, he is showing better since the heparin has been started. VITAL SIGNS: Stable. He is afebrile, pulse is 90, respiratory rate is 16, and blood pressure is 140/60. HEENT: Supple. No JVD. No lymphadenopathy. Eyes PERRLA. EOMs are full. Conjunctivae pink. NECK: Supple. No jugular venous distention. No bruit. No mass. No thyromegaly. No lymphadenopathy. LUNGS: Bilateral rhonchi, but no wheezing is appreciated. ABDOMEN: Soft, bowel sounds are normoactive, without mass, guarding or rebound and no organomegaly. EXTREMITIES: Reveal no clubbing or cyanosis. There are sores on his leg and he has pain and palpation in the left groin area. RADIOLOGY DATA: X-rays shows no acute infiltrates, there are abnormalities that need further evaluation. CT of the chest is in ordered at this time as well as further evaluation. LABORATORY DATA: Laboratory test showed a D-dimer of 7.59, pH of 7.31, pCO2 of 43, and oxygen saturation of 90%. Laboratory studies appear to be normal. ASSESSMENT: 1. Pulmonary embolus. 2. Chronic obstructive pulmonary disease. 3. Obstructive sleep apnea. 4. Narcolepsy. 5. Morbid obesity. 6. Hypertension. 7. Abnormal skin and subcutaneous lesions in the lower extremities. PLAN: 1. We have done limited hypercoagulable workup and suggest hematology evaluation. 2. A consultation with Dr. Choco Black as for vascular has been requested. No deep venous thrombosis on venous Doppler, but perhaps higher in the venous system. 3. We have adjusted his pulmonary medications for COPD. We will like to add Spiriva once he has more stable. He is not in any acute distress from the COPD point of view with this time. 4. CT of the chest to better evaluate other abnormalities, which appear on the chest x-ray. We will follow closely with you and decide the need for further intervention. Rambo Morales MD MTD[facility]
--- NOTE | 2016-11-18 16:02 | PN ---
DATE: 11/18/2016 REASON FOR CONSULTATION: Acute shortness of breath, PE, sleep apnea, and cardiac evaluation. BRIEF CLINICAL HISTORY: This is a 76-year-old male morbidly obese. He has a past medical history significant for prostate cancer, hypertension, and history of sleep apnea, COPD, admitted with acute shortness of breath. Elevated creatinine 1.5. The patient underwent VQ scan, has high probability of PE. The patient is currently on heparin. Denies any chest pain or short of breath any palpitation, significantly improved. PHYSICAL EXAMINATION: As follows: VITAL SIGNS: Temperature afebrile, heart rate 60, blood pressure 147/96. HEENT: PERRLA, intact. NECK: Supple. No carotid bruit, no thyromegaly. CHEST: Clear to auscultation. HEART: S1 and S2, regular. ABDOMEN: Soft. EXTREMITIES: Clubbing and cyanosis negative. LABORATORY DATA: Blood workup as follows WBC *------* and hemoglobin 14.0, hematocrit 43.2 and platelet count 228. Chemistry shows sodium 137, potassium 5, chloride 103, carbon dioxide 21, anion gap of 15, BUN 24, creatinine 1.3, troponin is positive. IMPRESSION: This is a 76-year-old male with past medical significant for chronic obstructive pulmonary disease, obstructive sleep apnea, obesity, history of stress test in 06/2015 which was negative. Later on complained of chest pain. The patient underwent cardiac catheterization done by Dr. Cardoso on August found to be normal coronaries dated 09/02/2015, admitted with acute shortness of breath. The patient underwent VQ scan because of elevated creatinine found to be high probability for PE. Cardiac catheterization revealed normal left ventricular function also at that time. At that time, echo in 06/2015, showed normal LV function with ejection fraction *------*, mild mitral regurgitation, mild tricuspid regurgitation, arterial pressure 28. Yesterday, the patient had echocardiography done after the diagnosis of PE was entertained, RV systolic pressure increased from 22 to 88 mmHg and dilated RV and RA noted where as a significant [id number] tricuspid regurgitation noted. He has still left ventricular function preserved ejection fraction of *------* as of yesterday trace aortic regurgitation, mild to mitral regurgitation. Extremity ultrasound 11/16/2016, showed no evidence phonographic evidence deep vein thrombosis. RECOMMENDATION: Continue heparin and will start Coumadin and will follow PT/INR. (Coumadin started yesterday by Dr. Bolden and will follow PT and INR). Thank you Dr. Looney for providing this opportunity in taking care of the patient Oneil Banks who will follow with you. We will discontinue when INR is 2. We will repeat INR in the morning. Elevated potassium possibly secondary to steroid. We will follow the lab in the morning. . Guerita Kern MD
[2016-11-18] MEDS: Budesonide 0.5 mg/2 ml Inhal Susp UD IH SCH (19:25)
--- NOTE | 2016-11-18 21:13 | PN ---
DATE: 11/18/2016 SUBJECTIVE: The patient is a 76-year-old black male who states he has been doing much better. No nausea, vomiting, or diarrhea. His shortness of breath has gotten improved. PHYSICAL EXAMINATION VITAL SIGNS: He is afebrile, pulse 60, respirations 20, blood pressure 151/81. CARDIOPULMONARY: Heart, S1 and S2 audible. LUNGS: Bilateral clear air entry. No rhonchi or crackles. ABDOMEN: Soft and nontender. No rebound. No guarding. NEUROLOGIC: The patient is awake and alert, communicative, and ambulatory. LABORATORY EXAM: WBC 15.7, hemoglobin 14.8, hematocrit 43.2, and platelets 228. PTT is . Chemistry, sodium 137, potassium 5.0, chloride 103, CO2 of 24, BUN 24, creatinine 1.3, blood sugar of 159. Procalcitonin is 0.15. LINDA screen is negative. ASSESSMENT: 1. Pulmonary embolism. Workup in process. 2. History of carcinoma of prostate. 3. Hypertension. 4. Morbid obesity. 5. Left leg pain with Doppler negative for deep vein thrombosis. 6. Chronic obstructive pulmonary disease. 7. Non-ST elevation myocardial infarction. Recent catheterization last year negative, probably demand ischemia. PLAN: Currently, the patient is on heparin. He is started on Coumadin. We will follow up his PT/INR and continue metabolizer treatment and we will follow up his PT/INR in the a.m. and reevaluate the patient. Shyam Looney MD
[2016-11-19] MEDS: Levalbuterol 1.25 MG/3 ML Inhal Soln UD IH SCH ×4 (01:13→20:25)
[2016-11-19] MEDS: Heparin 25,000units in D5W 25,000 UNITS/250 ML BAG IV PRN (02:21)
[2016-11-19] MEDS: Pantoprazole 40 mg EC Tab PO SCH (05:43)
[2016-11-19] MEDS: Budesonide 0.5 mg/2 ml Inhal Susp UD IH SCH ×2 (07:44→20:25)
[2016-11-19 08:12] LABS: HEMOGLOBIN 14.9 gm/dL (14.0-18.0); MEAN CELL VOLUME 88.9 fL (80.0-105.0); MEAN CORPUSCULAR HEMOGLOBIN 30.7 pg (25.0-35.0); MEAN CORPUSCULAR HGB CONC 34.6 g/dl (31.0-37.0); MEAN PLATELET VOLUME 8.9 fl (7.0-11.0); PLATELET COUNT 210 10^3/uL (120.0-450.0); RBC 4.85 10^6/uL (3.5-6.1); RED CELL DISTRIBUTION WIDTH 16.6 % (11.5-14.5); WHITE BLOOD COUNT 19.7 10^3/ul (4.5-11.0)
[2016-11-19 08:43] LABS: INR 1.86 (0.93-1.08); PROTHROMBIN TIME 20.1 Seconds (9.9-11.8)
[2016-11-19 08:45] LABS: CALCIUM 9.2 mg/dL (8.4-10.5)
[2016-11-19 08:46] LABS: PARTIAL THROMBOPLASTIN TIME 121.6 Seconds (23.7-30.8)
[2016-11-19 09:57] LABS: BAND 2 % (0-2); NEUTROPHIL 40 % (50.0-70.0)
[2016-11-19 09:58] LABS: ANISOCYTOSIS SLIGHT; LYMPHOCYTE 53 % (22.0-35.0); MONOCYTE 2 % (1.0-6.0); NUCLEATED RED BLOOD CELL 1 %; PLATELET ESTIMATE NORMAL (NORMAL)
[2016-11-19] MEDS: cefTRIAXone 1 gm 1 GM/100 ML BAG IVPB SCH (10:07)
[2016-11-19] MEDS: MethylPREDNISolone 40 mg Vial IV SCH (10:08)
--- NOTE | 2016-11-19 10:54 | PN ---
PULMONARY PROGRESS NOTE DATE: 11/19/2016 SUBJECTIVE: The patient was seen and examined at bedside. He states he feels good. There is no pleuritic chest pain and currently no shortness of breath. PHYSICAL EXAMINATION: VITAL SIGNS: As follows: Blood pressure is 130/80, respirations are 20, pulse is 84 and regular, and pulse oximetry is 94% on room air. HEENT: Within normal limits. NECK: Supple with no jugular vein distention. CHEST: Symmetrical. LUNGS: Bilateral basilar rhonchi. No wheezes. CARDIOVASCULAR: S1 and S2. No S3. Regular. ABDOMEN: Soft and nontender with no organomegaly. EXTREMITIES: 1+ pedal edema. RADIOLOGY: Chest x-ray reveals no acute infiltrates. He had an elevated D-dimer. ASSESSMENT: 1. Pulmonary emboli. 2. No deep venous thrombosis on venous Doppler. 3. Chronic obstructive pulmonary disease. 4. Obstructive sleep apnea. 5. Narcolepsy. PLAN: The patient will continue on intravenous heparin. Workup for possible hypocoagulable state or source of emboli is undertaking. He should be transitioned to oral anticoagulation soon with clinical stable. Continue treatment for chronic obstructive pulmonary disease and obstructive sleep apnea. Kike Donaldson MD MTDD
--- NOTE | 2016-11-19 13:43 | PN ---
SUBJECTIVE: The patient is a 76-year-old, seen and examined, doing well, eating and tolerating. No chest pain. No shortness of breath, except mild exertional dyspnea, still on heparin. PHYSICAL EXAMINATION: VITAL SIGNS: He is afebrile. Pulse 87, respirations 20, blood pressure 147/80. LUNGS: Bilateral fair airflow. No rhonchi or crackles. HEART: S1 and S2 audible. ABDOMEN: Soft, obese, and nontender. No rebound. No guarding. NEUROLOGIC: He is awake and alert. Communicative, ambulatory. EXTREMITIES: Bilateral leg, no edema. LABORATORY EXAMINATION: His INR is 1.9. ASSESSMENT: 1. Pulmonary embolism with high probability V/Q scan. 2. Chronic obstructive pulmonary disease. 3. Morbid obesity. 4. Obstructive sleep apnea. 5. History of hypertension. PLAN: We will discontinue telemetry. We will continue him on heparin. Given Coumadin. Follow PT/INR. I offered the patient to go to TCU, but he would rather go home. He states he is feeling not better; does not need any rehab. He is ambulating, and he will follow up with Dr. Zavala on Monday to follow PT/INR, and he will follow up with Dr. Morales who will arrange for PT/INR followup. Shyam Looney MD
[2016-11-20] MEDS: Levalbuterol 1.25 MG/3 ML Inhal Soln UD IH SCH ×4 (01:25→21:05)
[2016-11-20] MEDS ORDERED: Sod Polystyrene Sulf 15 gm/60 ml Oral Susp PO STA (02:26)
--- NOTE | 2016-11-20 02:27 | CP.PCM.PN ---
Subjective - Date & Time of Evaluation Date of Evaluation: 11/20/16 Time of Evaluation: 02:27 - Subjective Subjective: Nurse tells me that K level was 5.3 mEq. Patient was seen at bedside . Has no complaints. Denies sob, urine difficulty. Medical record was reviewed. This 76 year old man was admitted with increasing sob, chest discomfort, Pulmonary embolism. Has PMH of HTN, COPD, morbid obesity, HALLIE, narcolepsy, prostate CA. Objective - Vital Signs/Intake and Output Vital Signs (last 24 hours): Temp Pulse Resp BP Pulse Ox 97.7 F 69 18 140/78 95 11/19/16 15:00 11/19/16 17:31 11/19/16 15:00 11/19/16 17:31 11/19/16 15:00 Intake and Output: 11/19/16 11/20/16 18:59 06:59 Intake Total 300 360 Balance 300 360 - Medications Medications: Current Medications Amlodipine Besylate (Norvasc) 5 mg PO DAILY [facility] Last Admin: 11/19/16 10:07 Dose: 5 mg Budesonide (Pulmicort Respules) 0.5 mg IH BIDRESP [facility] Last Admin: 11/19/16 20:25 Dose: 0.5 mg Ceftriaxone Sodium (Rocephin 1 Gram Ivpb) 1 gm in 100 mls @ 100 mls/hr IVPB DAILY [facility] PRN Reason: Protocol Last Admin: 11/19/16 10:07 Dose: 100 mls/hr Levalbuterol HCl (Xopenex) 1.25 mg IH [id number] [facility] Last Admin: 11/20/16 01:25 Dose: Not Given Metoprolol Tartrate (Lopressor) 25 mg PO BID [facility] Last Admin: 11/19/16 17:31 Dose: 25 mg Pantoprazole Sodium (Protonix Ec Tab) 40 mg PO 0630 [facility] Last Admin: 11/19/16 05:43 Dose: 40 mg Prednisone (Prednisone Tab) 20 mg PO DAILY [facility] Sodium Polystyrene Sulfonate (Kayexalate Oral Susp) 15 gm PO STAT STA Stop: 11/20/16 02:27 Warfarin Sodium (Coumadin) 7.5 mg PO 1800 [facility] PRN Reason: Protocol Last Admin: 11/19/16 17:30 Dose: 7.5 mg - Labs Labs: 11/19/16 08:09 11/19/16 08:09 PT 20.1 Seconds (9.9-11.8) H 11/19/16 08:09 INR 1.86 (0.93-1.08) H 11/19/16 08:09 APTT 53.2 Seconds (23.7-30.8) H 11/19/16 16:00 Microbiology Studies 11/16/16 08:45 Blood Culture - Preliminary Blood NO GROWTH AFTER 3 DAYS 11/16/16 08:30 Blood Culture - Preliminary Blood NO GROWTH AFTER 3 DAYS Lab Studies 11/19/16 11/19/16 11/19/16 Range/Units 16:00 08:09 08:09 WBC 19.7 H D (4.5-11.0) 10^3/ul RBC 4.85 (3.5-6.1) 10^6/uL Hgb 14.9 (14.0-18.0) gm/dL Hct 43.1 (42.0-52.0) % MCV 88.9 (80.0-105.0) fL MCH 30.7 (25.0-35.0) pg MCHC 34.6 (31.0-37.0) g/dl RDW 16.6 H (11.5-14.5) % Plt Count 210 (120.0-450.0) 10^3/uL MPV 8.9 (7.0-11.0) fl Neutrophils % (Manual) 40 L (50.0-70.0) % Band Neutrophils % 2 (0-2) % Lymphocytes % (Manual) 53 H (22.0-35.0) % Monocytes % (Manual) 2 (1.0-6.0) % Nucleated RBC % 1 % Platelet Evaluation Normal (NORMAL) Anisocytosis (manual) Slight Haptoglobin (43-212) mg/dL PT (9.9-11.8) Seconds INR (0.93-1.08) APTT 53.2 H (23.7-30.8) Seconds Sodium 138 (132-148) mmol/L Potassium 5.3 H (3.6-5.0) mmol/L Chloride 102 (98-107) mmol/L Carbon Dioxide 28 (21-33) mmol/L Anion Gap 13 (10-20) BUN 25 H (7-21) mg/dL Creatinine 1.4 (0.5-1.4) mg/dL Est GFR ( Amer) 60 Est GFR (Non-Af Amer) 50 Random Glucose 171 H (70-110) mg/dL Calcium 9.2 (8.4-10.5) mg/dL 11/19/16 11/18/16 Range/Units 08:09 08:00 WBC (4.5-11.0) 10^3/ul RBC (3.5-6.1) 10^6/uL Hgb (14.0-18.0) gm/dL Hct (42.0-52.0) % MCV (80.0-105.0) fL MCH (25.0-35.0) pg MCHC (31.0-37.0) g/dl RDW (11.5-14.5) % Plt Count (120.0-450.0) 10^3/uL MPV (7.0-11.0) fl Neutrophils % (Manual) (50.0-70.0) % Band Neutrophils % (0-2) % Lymphocytes % (Manual) (22.0-35.0) % Monocytes % (Manual) (1.0-6.0) % Nucleated RBC % % Platelet Evaluation (NORMAL) Anisocytosis (manual) Haptoglobin 126 (43-212) mg/dL PT 20.1 H (9.9-11.8) Seconds INR 1.86 H (0.93-1.08) APTT 121.6 H* (23.7-30.8) Seconds Sodium (132-148) mmol/L Potassium (3.6-5.0) mmol/L Chloride (98-107) mmol/L Carbon Dioxide (21-33) mmol/L Anion Gap (10-20) BUN (7-21) mg/dL Creatinine (0.5-1.4) mg/dL Est GFR ( Amer) Est GFR (Non-Af Amer) Random Glucose (70-110) mg/dL Calcium (8.4-10.5) mg/dL - Constitutional Appears: Well, No Acute Distress - Head Exam Head Exam: ATRAUMATIC, NORMAL INSPECTION, NORMOCEPHALIC - Eye Exam Eye Exam: Normal appearance - ENT Exam ENT Exam: Normal External Ear Exam - Neck Exam Neck Exam: Normal Inspection - Respiratory Exam Respiratory Exam: Prolonged Expiratory Phase - Cardiovascular Exam Cardiovascular Exam: absent: JVD - GI/Abdominal Exam GI & Abdominal Exam: absent: Distended - Exam Additional comments: Deferred. - Extremities Exam Extremities Exam: Normal Inspection - Back Exam Back Exam: NORMAL INSPECTION - Neurological Exam Neurological Exam: Alert, Oriented x3 - Psychiatric Exam Psychiatric exam: Normal Affect, Normal Mood - Skin Skin Exam: Normal Color Assessment and Plan - Assessment and Plan (Free Text) Assessment: Hyperkalemia. Pulmonary embolism. HTN. COPD. Morbid obesity. HALLIE. Narcolepsy. Prostate cancer. Plan: Kayexalate 15 G po stat. BMP this AM. Continue present management as PMD.
--- NOTE | 2016-11-20 03:03 | PN ---
DATE: 11/19/2016 REASON FOR FOLLOWUP: Acute shortness of breath, PE, sleep apnea, cardiac evaluation, rule out endobronchial lesion, rule out lung CA. SUBJECTIVE: The patient denies any chest pain, lying comfortable. Denies any chest pain, shortness of breath, or any palpitation, on heparin. PT/INR is pending. PHYSICAL EXAMINATION VITAL SIGNS: Temperature afebrile, heart rate 70, and blood pressure 150/96. HEENT: PERRLA. Extraocular muscles are intact. NECK: Supple. No carotid bruits or thyromegaly. CHEST: Clear to auscultation. HEART: S1 and S2 regular. ABDOMEN: Soft. EXTREMITIES: Clubbing and cyanosis negative. LABORATORY DATA: Blood workup as follows: WBC 19, hemoglobin 14.9, hematocrit 43.1, and platelet count 210. Chemistry shows sodium 130, potassium 5.6, chloride 102, CO2 is 28, anion gap of 13, BUN 25, and creatinine 1.4. Coagulation profile, INR 1.86 and PTT of 121. IMPRESSION: A 76-year-old male with past medical history significant for obesity, history of prostate carcinoma, chronic obstructive pulmonary disease, obstructive sleep apnea, having acute shortness of breath. The creatinine was elevated at 1.5 and underwent V/Q scan high probability of pulmonary embolism. The patient was treated with IV heparin. The patient's previous cardiac workup, stress test in 06/2015, which was negative, later on complained of chest pain and underwent cardiac catheterization by Dr. Cardoso and found to be normal coronary dated 09/02/2015. V/Q scan high probability for pulmonary embolism and being treated with IV heparin. The patient had echocardiography done at this time that shows RV systolic pressure of 88. Prior, the patient had in 06/2015, RV systolic pressure was 22 consistent with acute diagnosis of pulmonary embolism. Still LV function is preserved by most recent echo dated 11/17/2016. Ejection fraction of 65% to 70%, mild mitral regurgitation, [id number] tricuspid regurgitation, severe pulmonary insufficiency, again consistent with pulmonary embolism dated 11/17/2016. The patient had Duplex scan done of lower extremity, essentially negative for DVT. The patient had a CT of chest without any contrast done that shows 8 x 2 mm mass in the superior segment of the left upper lobe, which was not present on previous chest and was not visible on chest x-ray. Followup is recommended to rule out any neoplastic lesion. History of obesity and history of obstructive sleep apnea. RECOMMENDATION: We will discontinue heparin at 5 p.m. By that time, INR will be more therapeutic, now is 1.86. *------* will be more therapeutic. We will discontinue heparin by 6 and continue dose of Coumadin. Later on, the patient needs workup to rule out any endobronchial lesion. In the interim, continue metoprolol, continue amlodipine, continue ceftriaxone, continue methylprednisolone, monitor renal function, monitor potassium. We will follow with you. On admission, the patient has a positive troponin, most likely secondary to noncardiac because of the acute PE, demand *------* right ventricle ischemia. As the patient had a cardiac catheterization from 08/2015, essentially normal, also the stress test was negative. Thank you Dr. Looney for providing this opportunity in taking care of Darren Riggs. Guerita Kern MD cc: Shyam Looney MD
[2016-11-20] MEDS: Budesonide 0.5 mg/2 ml Inhal Susp UD IH SCH ×2 (07:11→21:05)
[2016-11-20] MEDS: Pantoprazole 40 mg EC Tab PO SCH (07:37)
[2016-11-20 07:44] LABS: INR 2.54 (0.93-1.08); PROTHROMBIN TIME 27.4 Seconds (9.9-11.8)
[2016-11-20 08:02] LABS: CALCIUM 9.1 mg/dL (8.4-10.5)
[2016-11-20] MEDS ORDERED: Sod Polystyrene Sulf 15 gm/60 ml Oral Susp PO ONE (09:10)
[2016-11-20] MEDS: cefTRIAXone 1 gm 1 GM/100 ML BAG IVPB SCH (10:26)
--- NOTE | 2016-11-20 16:35 | PN ---
DATE: 11/20/2016 REASON FOR CONSULTATION: Follow up acute PE, sleep apnea, cardiac evaluation, rule out endobronchial lesion, rule out lung CA. SUBJECTIVE: The patient denies any chest pain, shortness of breath or any palpitation. He has a loose bowel movement secondary to Kayexalate. OBJECTIVE: GENERAL: Lying flat on the bed; is at the bedside; wanting to go to TCU. VITAL SIGNS: Temperature afebrile, heart rate 70, and blood pressure 162/97. HEENT: PERRLA intact. NECK: Supple. No carotid bruits or thyromegaly. CHEST: Clear to auscultation. HEART: S1 and S2 regular. ABDOMEN: Soft. EXTREMITIES: Clubbing and cyanosis negative. LABORATORY DATA: Blood workup as follows: WBC 19, hemoglobin 14.9, hematocrit 43.1, and platelet count 210. Chemistry shows sodium 130, potassium 5.6, chloride 103, CO2 is 26, anion gap of 13, BUN is 26 and creatinine 1.4. IMPRESSION: Hyperkalemia, most likely secondary to steroid, some element of prerenal azotemia, obesity, acute pulmonary embolism, INR therapeutic at 2.4. *------* rule out endobronchial lesion; rule out lung carcinoma; 8 x 22 mm lesion which was not present in the previous CAT scan; history of prostate carcinoma, history of chronic obstructive pulmonary disease, history of obstructive sleep apnea, history of stress test in 06/2016 negative; history of cardiac catheterization in 08/2016, which is negative. Last echo shows ejection fraction *------* consistent with acute pulmonary embolism. RECOMMENDATION: Continue anticoagulation. Repeat stat potassium. If repeat stat potassium is more than 5.4, we will give Kayexalate because the patient has loose motion. Continue anticoagulation. The goal is to keep INR between 2 to 2.5. Coumadin dose decreased by Dr. Looney to 5 mg, we will continue 5 mg. Repeat the INR in the morning. Avoid nephrotoxic medication. We will start 10 mg of Norvasc today and I will put p.r.n. hydralazine. Avoid DIEGO inhibitor because of the renal insufficiency. We will follow with you. Follow up repeat CAT scan to rule out CA. We will repeat the blood workup in the morning. Thank you Dr. Looney for providing this opportunity in taking care of the patient. Guerita Kern MD
--- NOTE | 2016-11-20 22:25 | CP.PCM.PN ---
Subjective - Date & Time of Evaluation Date of Evaluation: 11/20/16 Time of Evaluation: 14:00 - Subjective Subjective: DATE OF EVALUATION: 11/20/2016 SUBJECTIVE: Shortness of breath has decreased since admission. Currently on coumadin with therapeutic INR . Thrombophilia workup is pending. Blood pressure controlled on current medications. CAT scan of the chest showed new 8 x 22 mm left upper lobe mass , not present on prior scans, suspicious for malignancy. has shortness of breath on ambulating. CURRENT MEDICATIONS: Norvasc 5 mg daily, Pulmicort 0.5 mg inhalation, ceftriaxone 1 g daily, heparin drip, Xopenex, Solu-Medrol 20 mg q. 12, metoprolol 25 mg b.i.d., Protonix 40 mg daily, Coumadin 10 mg daily. REVIEW OF SYSTEMS: As per HPI. A 12-point review of systems reviewed and negative. PHYSICAL EXAMINATION: GENERAL: Comfortable in bed, in no acute distress. VITAL SIGNS: reviewed. HEENT: Normal. NECK: No lymphadenopathy. CHEST: Air entry present and equal bilaterally. No added sounds. CARDIOVASCULAR: S1 and S2 normal. No murmur, no gallop. ABDOMEN: Soft and nontender. No hepatosplenomegaly. EXTREMITIES: No edema. CENTRAL NERVOUS SYSTEM: Alert and oriented x3. No focal sensory or motor deficit. SKIN: Intact. SPINE: Nontender. LABORATORY DATA: reviewed. ASSESSMENT: 1. Bilateral pulmonary embolism. 2. Hypertension. 3. Left leg swelling. 4. Chronic obstructive pulmonary disease. 5. Non-ST elevation myocardial infarction elevated cardiac enzyme. 6. left upper lobe mass PLAN: Therpautic on coumadin. New left upper lobe mass. Possible biopsy with Dr. Black. Consult requested. Hold coumadin. he will need reversal of coumadin. Lovenox starting in am. if biopsy not planned, resume coumadin tomorrow. COPD : continue nebs. CV : stable. TCU eval. Thank you Dr. Looney for allowing us to participate in the patient's care. Ailcia Bolden MD Objective - Vital Signs/Intake and Output Vital Signs (last 24 hours): Temp Pulse Resp BP Pulse Ox 97.5 F L 73 22 117/58 L 90 L 11/20/16 16:08 11/20/16 17:09 11/20/16 16:08 11/20/16 17:53 11/20/16 16:08 Intake and Output: 11/20/16 11/21/16 18:59 06:59 Intake Total 820 300 Output Total 500 Balance 320 300 - Medications Medications: Current Medications Amlodipine Besylate (Norvasc) 10 mg PO DAILY [facility] Budesonide (Pulmicort Respules) 0.5 mg IH BIDRESP [facility] Last Admin: 11/20/16 21:05 Dose: 0.5 mg Ceftriaxone Sodium (Rocephin 1 Gram Ivpb) 1 gm in 100 mls @ 100 mls/hr IVPB DAILY [facility] PRN Reason: Protocol Last Admin: 11/20/16 10:26 Dose: 100 mls/hr Levalbuterol HCl (Xopenex) 1.25 mg IH [id number] [facility] Last Admin: 11/20/16 21:05 Dose: 1.25 mg Metoprolol Tartrate (Lopressor) 25 mg PO BID [facility] Last Admin: 11/20/16 17:09 Dose: 25 mg Pantoprazole Sodium (Protonix Ec Tab) 40 mg PO 0630 [facility] Last Admin: 11/20/16 07:37 Dose: 40 mg Prednisone (Prednisone Tab) 20 mg PO DAILY [facility] Last Admin: 11/20/16 10:26 Dose: 20 mg - Labs Labs: 11/19/16 08:09 11/20/16 10:45 PT 27.4 Seconds (9.9-11.8) H 11/20/16 06:30 INR 2.54 (0.93-1.08) H 11/20/16 06:30 APTT 53.2 Seconds (23.7-30.8) H 11/19/16 16:00
[2016-11-21] MEDS: Levalbuterol 1.25 MG/3 ML Inhal Soln UD IH SCH ×4 (02:45→20:25)
[2016-11-21 05:06] LABS: B2 GLYCOPROTEIN I AB(IGA) <9 SAU (<=20); B2 GLYCOPROTEIN I AB(IGG) <9 SGU (<=20); B2 GLYCOPROTEIN I AB(IGM) <9 SMU (<=20)
[2016-11-21 05:48] LABS: CARDIOLIPIN AB (IGA) <11 APL (<=11); CARDIOLIPIN AB (IGG) <14 GPL (<=14); CARDIOLIPIN AB (IGM) <12 MPL (<=12); PHOSPHATIDYLSERINE AB IGA <20 U/mL (<20); PHOSPHATIDYLSERINE AB IGG <10 U/mL (<10); PHOSPHATIDYLSERINE AB IGM <25 U/mL (<25)
[2016-11-21] MEDS: Pantoprazole 40 mg EC Tab PO SCH (06:05)
[2016-11-21 07:11] LABS: HEMOGLOBIN 14.5 gm/dL (14.0-18.0); MEAN CORPUSCULAR HEMOGLOBIN 30.1 pg (25.0-35.0); MEAN CORPUSCULAR HGB CONC 33.9 g/dl (31.0-37.0); MEAN PLATELET VOLUME 9.7 fl (7.0-11.0); PLATELET COUNT 262 10^3/uL (120.0-450.0); RBC 4.81 10^6/uL (3.5-6.1); RED CELL DISTRIBUTION WIDTH 17.1 % (11.5-14.5)
[2016-11-21 07:14] LABS: INR 2.11 (0.93-1.08); PROTHROMBIN TIME 22.8 Seconds (9.9-11.8)
[2016-11-21 07:23] LABS: WHITE BLOOD COUNT 28.1 10^3/ul (4.5-11.0)
[2016-11-21 08:01] LABS: CALCIUM 9.2 mg/dL (8.4-10.5); MAGNESIUM 2.3 mg/dL (1.7-2.2)
[2016-11-21] MEDS: Budesonide 0.5 mg/2 ml Inhal Susp UD IH SCH ×2 (08:28→20:25)
[2016-11-21 08:35] LABS: ATYPICAL LYMPHOCYTE 12 % (0.0-0.0); BAND 1 % (0-2); LYMPHOCYTE 66 % (22.0-35.0); MONOCYTE 1 % (1.0-6.0); NEUTROPHIL 20 % (50.0-70.0)
[2016-11-21 08:36] LABS: NUCLEATED RED BLOOD CELL 3 %; PLATELET ESTIMATE NORMAL (NORMAL)
[2016-11-21] MEDS: cefTRIAXone 1 gm 1 GM/100 ML BAG IVPB SCH (09:14)
--- NOTE | 2016-11-21 11:20 | PN ---
DATE: 11/21/2016 SUBJECTIVE: The patient appears comfortable this morning. He is not short of breath at rest. He has no chest pain. PHYSICAL EXAMINATION VITAL SIGNS: (Last noted in the computer): Temperature is 97.5, pulse is 73, respiration this morning 18, last blood pressure recorded 117/58, oxygen saturation on room air ranges between 90% to 95%. HEENT: Normocephalic, atraumatic. NECK: No JVD. CARDIOVASCULAR: Positive S1, S2. No S3. LUNGS: Minimal bilateral rhonchi. No wheezing. EXTREMITIES: Mild edema. No cyanosis. No clubbing. Calves are nontender to palpation. GI: Abdomen is soft, nontender, and nondistended. Bowel sounds are positive. SKIN: No acute rash. NEUROLOGIC: Limited at the present time. IMPRESSION: 1. Pulmonary embolism. 2. Chronic obstructive pulmonary disease. 3. Obstructive sleep apnea. 4. Narcolepsy. 5. Hypertension. 6. Left upper lobe opacity PLAN: The patient appears comfortable this morning. He is not short of breath at rest. He has no chest pain. He states, he is feeling much much better overall. On physical exam, there is no significant bronchospasm. In addition, there is no significant alveolar-arterial gradient. I will continue with the current nebulizer treatments and low-dose oral steroids for now. I did discuss the case with the night nurse at length. The patient did receive a dose of Coumadin yesterday. I have also reviewed the chart at length. I have also discussed the case with Dr. Donaldson. The patient is for possible CAT scan guided lung biopsy later today. The anticoagulation is being ordered by Hematology (Dr. Bolden). Her input is noted. Clinical status of the patient is significantly improved--compared to the initial presentation. I will discuss the above with the attending physician, and Dr. Choco Black (Interventional Radiology) later this morning. Harpreet Mejia MD MTDJoseph
[2016-11-21] MEDS ORDERED: Phytonadione 10 mg/ml Inj (Adult) SC ONE (12:28)
[2016-11-21] MEDS ORDERED: cefTRIAXone 1 gm 1 GM/100 ML BAG IVPB SCH (13:00)
[2016-11-21] MEDS ORDERED: Vancomycin 1gm in NS 250ml 1 GM/250 ML BAG IVPB STA (13:45)
[2016-11-21] MEDS: Cefepime IV 2 gm in NS 2 GM/100 ML BAG IVPB SCH ×2 (14:16→21:06)
--- NOTE | 2016-11-21 15:45 | PN ---
DATE: 11/21/2016 SUBJECTIVE: The patient is 76-years old, seen and examined; mild shortness of breath on walking, otherwise does not look in any distress. PHYSICAL EXAMINATION VITAL SIGNS: The patient is afebrile, pulse 72, respirations 20, blood pressure 165/84. LUNGS: Bilateral fair air flow. No rhonchi or crackle. HEART: S1 and S2 audible. ABDOMEN: Soft, obese, and nontender. No rebound, no guarding. NEUROLOGIC: The patient is awake and alert, communicative, eating and tolerating. EXTREMITIES: Bilateral legs, no edema. LABORATORY DATA: WBC is 28.1, hemoglobin 14.5, hematocrit 42.8, platelets 262. PT is 22.8, INR 2.11. Chemistry; sodium 138, potassium 4.9, chloride 100, CO2 of 131, BUN 28, creatinine 1.6, blood sugar of 85, magnesium 2.3. The patient had CT scan of the chest done that there is 8 x 22 mm mass in the superior segment of the left upper lobe that was not present on the previous CT, not visible on the x-ray chest either. ASSESSMENT AND PLAN: 1. Left upper lobe mass, 8 x 22 mm. 2. Chronic obstructive pulmonary disease. 3. Obstructive sleep apnea. 4. High probability V/Q scan. 5. Chronic kidney disease. 6. Morbid obesity. 7. History of narcolepsy. 8. Hypertension. PLAN: The patient has almost *------* since we found this new mass. I explained to the patient in great detail in the presence of his that there are two approaches, either we can postpone the biopsy for now, have PET scan as outpatient and then refigure that he needed to be biopsied or not. Second option is to do biopsy while the patient is in the hospital, but we have to reverse the anticoagulation. There is a risk of increase in size of pulmonary embolism and risk of bleed during biopsy, but the patient states he is very anxious once he found out that there is a mass, he does not want to wait any more, he would rather have biopsy done during this admission. I also discussed with Dr. De who agreed with that and it was explained to the patient in great length, risks and benefits during biopsy now or lateral on, but he chose to have biopsy done during this admission, so his Coumadin is on hold yesterday and today and he is scheduled to have biopsy done tomorrow morning. We will restart anticoagulation and watch him closely and followup this patient in the a.m. Shyam Looney MD
--- NOTE | 2016-11-21 17:53 | PN ---
DATE: 11/21/2016 REASON FOR FOLLOWUP: Cardiac evaluation, admitted with short of breath secondary to PE, possible endobronchial lesion rule out lung CA. SUBJECTIVE: The patient denies any chest pain, shortness of breath, or any palpitation. Feels okay. is at the bedside. OBJECTIVE FINDINGS GENERAL: The patient is lying flat on the bed. He denies any chest pain, shortness of breath, any palpitation. He is waiting to go to TCU. Coumadin is on hold for possible biopsy of the lung. PHYSICAL EXAMINATION: As follows; VITAL SIGNS: Temperature afebrile, heart is 72, blood pressure 165/84. HEENT: PERRLA. Extraocular muscles intact. NECK: Supple. No carotid bruit. No thyromegaly. CHEST: Clear to auscultation. HEART: S1 and S2 regular. ABDOMEN: Soft. EXTREMITIES: Clubbing and cyanosis negative LABORATORY DATA: Blood workup as follows: WBC 28.1, hemoglobin 14.5, hematocrit 42.8, platelet count 262. Chemistries shows sodium 130, potassium 4.9, chloride 100, carbon dioxide 31, anion gap of 12, BUN 20, creatinine 1.6. IMPRESSION: A 76-year-old male with past medical history of chronic obstructive pulmonary disease admitted with acute short of breath. History of prostate carcinoma. Elevated BUN and creatinine. Underwent lung scan that shows suspicious for pulmonary embolism, so the patient is on IV heparin, now on Coumadin, if therapeutic. CAT scan shows endobronchial lesion, possibly 0.8 x 22 mm mass, being evaluated for biopsy. Coumadin is on hold. Denies any chest pain, shortness of breath, any palpitation. Today INR is 2.11, off Coumadin for possible biopsy. RECOMMENDATION: Discussed with , discussed with the patient, is at the bedside; explaining the patient's condition and mentioned that if the patient is not going for biopsy, we will resume the Coumadin. For now it on hold. Coumadin and Lovenox being manage by Dr. Bolden, information systems specialist. We will follow with you. CVA status is stable for risk stratification. Consider stress as an outpatient 3 to 6 months. The patient's most recent echo dated 11/17/2016 day before yesterday, 3 days ago, does show ejection fraction 65% to 70%, systolic RV function is mild to moderately reduced, trace aortic regurgitation, mild to mitral regurgitation, [id number] tricuspid regurgitation, RV systolic pressure is 88 when compared from the echo in 2016. RV pressure was a 22 consistent with acute PE. Of note, the patient had a stress test 06/2015 was a negative and then followed by the patient had cardiac catheterization to be done *------* chest and found to be normal coronaries, so no further cardiac workup is planned or warranted as this time. We will follow with you. Thank you doctor for providing the opportunity in taking care of the patient Darren Riggs. We will follow the lab in the morning. Yesterday K was elevated, Kayexalate was given with the repeat K with 4.6 today is 4.9. The elevated potassium is secondary to steroid. We will follow with you and repeat the lab in the morning. Guerita Kern MD
[2016-11-22] MEDS: Levalbuterol 1.25 MG/3 ML Inhal Soln UD IH SCH ×5 (02:34→23:22)
[2016-11-22] MEDS: Pantoprazole 40 mg EC Tab PO SCH (05:38)
[2016-11-22] MEDS: Sodium Chloride 0.45% 1,000 ML IV SCH ×2 (05:38→18:31)
[2016-11-22 06:59] LABS: HEMOGLOBIN 14.2 gm/dL (14.0-18.0); MEAN CELL VOLUME 88.1 fL (80.0-105.0); MEAN CORPUSCULAR HEMOGLOBIN 30.1 pg (25.0-35.0); MEAN CORPUSCULAR HGB CONC 34.2 g/dl (31.0-37.0); MEAN PLATELET VOLUME 9.2 fl (7.0-11.0); PLATELET COUNT 219 10^3/uL (120.0-450.0); RBC 4.71 10^6/uL (3.5-6.1); RED CELL DISTRIBUTION WIDTH 16.9 % (11.5-14.5); WHITE BLOOD COUNT 20.4 10^3/ul (4.5-11.0)
[2016-11-22 07:21] LABS: INR 1.45 (0.93-1.08); PARTIAL THROMBOPLASTIN TIME 33.1 Seconds (23.7-30.8); PROTHROMBIN TIME 15.7 Seconds (9.9-11.8)
[2016-11-22] MEDS: Budesonide 0.5 mg/2 ml Inhal Susp UD IH SCH ×2 (08:10→19:45)
[2016-11-22 08:12] LABS: BLOOD UREA NITROGEN 28 mg/dL (7-21); CALCIUM 8.8 mg/dL (8.4-10.5); GFR AFRICAN-AMERICAN > 60; GFR NON-AFRICAN AMERICAN 54; MAGNESIUM 2.2 mg/dL (1.7-2.2)
[2016-11-22 08:22] LABS: ATYPICAL LYMPHOCYTE 3 % (0.0-0.0); BAND 1 % (0-2); LYMPHOCYTE 78 % (22.0-35.0); MONOCYTE 3 % (1.0-6.0); NEUTROPHIL 15 % (50.0-70.0); PLATELET ESTIMATE NORMAL (NORMAL)
[2016-11-22] MEDS ORDERED: Midazolam 2 MG/2 ML VIAL ONE (09:26)
[2016-11-22 10:53] LABS: JAK2 V617F NOT DETECTED
[2016-11-22] MEDS: Cefepime IV 2 gm in NS 2 GM/100 ML BAG IVPB SCH ×2 (12:13→21:17)
--- NOTE | 2016-11-22 12:46 | PN ---
DATE: 11/22/2016 SUBJECTIVE: The patient appears very comfortable at rest. He is not short of breath. PHYSICAL EXAMINATION VITAL SIGNS: Temperature is 97.6, pulse 72, respirations 18, blood pressure 129/73, oxygen saturation on room air is 98%. HEENT: Normocephalic and atraumatic. No JVD. CARDIOVASCULAR: Positive S1 and S2. No S3. LUNGS: Clear bilaterally this morning. EXTREMITIES: Mild edema. No cyanosis, no clubbing. Calves are nontender to palpation. GI: Abdomen is soft, nontender, nondistended. Bowel sounds are positive. SKIN: No acute rash. NEUROLOGIC: Limited at the present time. IMPRESSION: 1. Pulmonary embolism. 2. Chronic obstructive pulmonary disease. 3. Obstructive sleep apnea. 4. Narcolepsy. 5. Left upper lobe opacity. PLAN: The patient appears very comfortable this morning. He is not short of breath at rest. He has no chest pain. He states he feels good. On physical exam, his lungs are now clear. Oxygen saturation on room air is 98%. I will continue the current nebulizer treatments and decrease the oral steroids this morning. I did review the note by Dr. Looney. I also discussed the case with the patient at length this morning. The patient is very well aware that interrupting his anticoagulation comes with significant risks. However, he is insistent that he wants the biopsy done today. I did discuss the case with the nurse at length in addition. The nurse confirms that the patient is for biopsy - with Dr. Choco Black - later today. I would continue with the Hematology/Oncology evaluation. Clinical status of the patient is certainly improved overall. I will discuss the above with the attending physician this morning. Harpreet Mejia MD GISELLA
[2016-11-22] MEDS ORDERED: Barium Sulfate Susp 2.1% w/v, 2.0% w/w 450 mL Bottle PO ONE (13:49)
--- NOTE | 2016-11-22 14:57 | PN ---
DATE: 11/22/2016 SUBJECTIVE: The patient is a 76-year-old male seen and examined, lying in bed, seems to be comfortable. He went for a lung mas biopsy Dr. Choco Black and the mass is too small to be biopsied, so the procedure was canceled. PHYSICAL EXAMINATION GENERAL: On examination today, he is awake and alert, communicative. VITAL SIGNS: He is afebrile. pulse is 65, respirations are 16, and blood pressure is 157/88. LUNGS: Bilateral fair airflow. No rhonchi or crackles. HEART: S1 and S2 audible. ABDOMEN: Soft, obese, and nontender. No rebound and no guarding. NEUROLOGICAL: The patient is awake and alert, communicative. LABORATORY DATA: WBC is 20.4, hemoglobin is 14, hematocrit is 41, and platelets are 219. PT is 15.7 and INR is 1.45. Chemistries: Sodium of 134, potassium of 4.4, chloride of 102, CO2 of 24, BUN of 28, creatinine of 1.3, and blood sugar of 98. Coagulation workup is negative. ASSESSMENT AND PLAN: 1. Left upper lung mass, planned for biopsy, but has been canceled. 2. Chronic obstructive pulmonary disease. 3. History of sleep apnea. 4. Leukocytosis. 5. Etiology unclear probably pulmonary. 6. High probability V/Q scan for pulmonary embolism. 7. Acute on chronic kidney disease, resolving. 8. Hypertension. PLAN: We will start the patient on Eliquis. Continue antibiotic and followup CBC in a.m. I will revaluate the patient in a.m., if his white count is trending down, we will send him home on p.o. antibiotic in a.m. and he will have PET scan versus CT scan done as outpatient and he will be followed by healthcare analyst and Dr. Zavala as an outpatient. Shyam Looney MD
--- NOTE | 2016-11-22 15:01 | PN ---
DATE: 11/22/2016 SUBJECTIVE: The patient denied any chest pain, shortness of breath, or any palpitation. is at the bedside. PHYSICAL EXAMINATION: VITAL SIGNS: As follows: Temperature afebrile, heart rate 60, and blood pressure 147/86. HEENT: PERRLA. Extraocular muscles are intact. NECK: Supple. No carotid bruits or thyromegaly. HEART: S1 and S2. Regular. CHEST: Clear to auscultation. ABDOMEN: Soft. EXTREMITIES: Clubbing and cyanosis negative. LABORATORY DATA: Blood workup as follows: WBC 20.4, hemoglobin 14.2, hematocrit 41.5, and platelet count 219. Chemistry show a sodium of 134, potassium 4.0, chloride 102, CO2 24, anion gap of 12, BUN 28, creatinine 1.3, and magnesium 2.2. CAT scan followup shows 8 mm x 22 mm mass, rule out lung carcinoma. Coumadin is on hold. Today INR is subtherapeutic. IMPRESSION: 1. Acute pulmonary embolism. 2. Obesity. 3. History of chronic obstructive pulmonary disease. 4. Some renal insufficiency. RECOMMENDATIONS: The patient is scheduled for CT-guided biopsy. Once it is done, we will resume back the Coumadin. Her borderline troponin in the beginning is probably secondary to RV ischemia and RV streaking. Echocardiography on 06/07/2016, showed preserved LV function, ejection fraction of 65% to 70%, trace aortic regurgitation, mild mitral regurgitation, [id number] tricuspid regurgitation, RV systolic pressure of 88, severe pulmonary hypertension consistent with acute PE. As mentioned previously, the troponin is positive secondary to RVEF , endobronchial lesion, rule out CA. Te patient is going for CT-guided biopsy today. Coumadin is on hold. Further recommendation after the biopsy. Thank you doctor for providing me the opportunity in taking care of the patient, Darren Riggs. We will resume Coumadin after the procedure is completed and no risk of bleeding. We will follow with you. Repeat the blood workup in the morning. Guerita Kern MD
[2016-11-22 16:43] VITALS: RESP 18; O2SAT 97
--- NOTE | 2016-11-23 00:17 | CON ---
DATE: 11/22/2016 CHIEF COMPLAINT: The patient is room 560, bed 1, seen earlier this morning with a chief compliant of elevated white blood cell count . BRIEF HISTORY OF PRESENT ILLNESS: This is a 76-year-old male with a history of morbidly obesity with BMI of 41, history of prostate cancer, BPH, and hypertension who was admitted with chest pain found in the emergency room and workup for pulmonary emboli and on admission, the patient's white count was 68716 with almost 40% lymphocytosis [place] [address] [place] [address] today. The patient has 78% lymphocytosis and the patient did have 12% atypical lymphs yesterday and infectious disease consultation requested. PAST MEDICAL HISTORY: Significant for hypertension, BPH, prostate cancer, morbid obesity with BMI of 41. PAST SURGICAL HISTORY: Noncontributory. MEDICATIONS: At home includes an inhaler, vitamin D. The patient was on Zithromax. The patient is on Norvasc and sulfasalazine. REVIEW OF SYSTEMS: Reveals that the patient's chest pain is somewhat improved. He has no fevers and no chills. No abdominal pain, diarrhea or constipation. No dysuria or frequency. No headaches. No rash. PHYSICAL EXAMINATION GENERAL: The patient is in bed, answering questions appropriate. VITAL SIGNS: Temperature of 98. The patient has not had any fevers in our entire hospitalization with a pulse of 68, respiratory rate of 16, it was up to 22 yesterday and earlier on this admission and blood pressure is 147/80. HEENT: Unremarkable. NECK: Supple. LUNGS: Decreased breath sounds. HEART: Sounds normal S1 and S2. ABDOMEN: Soft and nontender. No rebound. No guarding. LABORATORY DATA: [place] [address] with 15% neutrophils, 78% lymphocytes. The patient did have 12% atypical lymphocytes yesterday with haptoglobin of 126, which is within normal range. Coagulation is noted and chemistries are noted. The patient has a creatinine of 1.4 on admission and actually it was 1.3 and earlier was 1.5 on the , which is the day of admission and in August it was also 1.4 and 1.5. Procalcitonin is reported to be at 0.15. Immunology reveals LINDA is negative. is ordered, not detected and rheumatoid factor is 10. Microbiology reveals blood cultures are negative. The patient had a CAT scan of chest it is noted, questionable mass or infiltrate. The patient had an ultrasound of the lower extremity, it reveals no evidence of DVT. ASSESSMENT AND PLAN: He is a 76-year-old male with hypertension, benign prostatic hypertrophy, prostate cancer, morbid obesity, body mass index of 41 with systemic inflammatory response syndrome and leukocytosis and had dyspnea with pulmonary emboli, chronic obstructive lung disease, obstructive sleep apnea and narcolepsy. Currently, on doxycycline and Maxipime. Cultures are negative. We will order a CAT scan of the abdomen and pelvis, will discuss with Dr. Bolden regarding the leukocytosis and the lymphocytosis and hematological workup and we will check on a final culture results and we will make further recommendations. Sekou Diehl MD
--- NOTE | 2016-11-23 05:23 | CON ---
DATE: 11/22/2016 REASON FOR CONSULTATION: Bilateral PE, known history of CLL as well as known history of prostate cancer. HISTORY OF PRESENT ILLNESS: The patient is a 76-year-old male well known to me from the outpatient initially referred to me for an elevated WBC count and further workup at that point revealed stage 0 CLL, which the patient has been stable for over 3 years. He also recently developed prostate cancer for which he received prostatectomy and has been stable as well. His PSA remaining well below 0.1. He now was admitted for sudden onset of chest pain as well as shortness of breath and was unable to get CT angio on admission secondary to elevated creatinine. A ventilation perfusion scan did reveal bilateral filling defect. He since been on heparin and was initially switched to Coumadin, but subsequently the patient had a CT scan, which discovered that he did have a pulmonary mass over 2 cm and currently he is off heparin and Coumadin to have a CT-guided biopsy done today. He also developed lower extremity edema and pain in the left leg approximately a week ago, which was also sudden onset and there was a Doppler done as an outpatient, but there was no DVT found at that time. PAST MEDICAL HISTORY: As above, known history of hypertension, COPD, known history of prostate cancer as well as CLL stage 0. ALLERGIES: NO KNOWN DRUG ALLERGIES. CURRENT MEDICATIONS: Include; Flomax, Ventolin, amlodipine, and vitamin D. SOCIAL HISTORY: Positive for smoking in the past. Denies any alcohol abuse. FAMILY HISTORY: Noncontributory. REVIEW OF SYSTEMS: As per the HPI. PHYSICAL EXAMINATION: GENERAL: The patient is an elderly pleasant -[place] male lying in bed in no acute distress. VITAL SIGNS: Reviewed. Temperature 98.6, pulse of 65, respiratory rate of 16 and blood pressure 157/88. HEENT: Head is normocephalic and atraumatic. Eyes; pupils equal, round and reactive to light and accommodation. Extraocular muscles are intact. NECK: Supple with no adenopathy. No JVD. No thyromegaly. CARDIOVASCULAR: S1 and S2 is heard. LUNGS: Clear to auscultation bilaterally with no rales or rhonchi. ABDOMEN: Positive bowel sounds. Soft, nontender and nondistended. No organomegaly is palpated. EXTREMITIES: There is bilateral lower extremity edema, but no erythema and bilateral pulses are palpable. NEUROLOGIC: He is alert, awake and oriented x3. LABORATORY DATA: His chest CT done without contrast did show a 8 x 22 mm mass in the superior segment of the left upper lobe. There is no associated lymphadenopathy. This was not present on the previous CT as well as chest x-ray that was compared. He did not get any contrast because of his renal function therefore it is not the most optimal study. His white count is 20.4, hemoglobin 14.2, hematocrit 41.5 and platelet count of 219. White count did show leukocytosis. His BUN and creatinine remains at 28 and 1.3 otherwise all other electrolytes are within normal limits. ASSESSMENT: An elderly male with known history of stage 0 chronic lymphocytic leukemia, which has been stable for several years, history of known prostate cancer status post prostatectomy, now with a new left upper lobe lung mass as well as possible pulmonary embolism. Continue anticoagulation, will hold off on Coumadin. Switch the patient to Eliquis as he is poorly complaint. The patient would follow up and prediction of anticoagulation with Eliquis would be much better compared to Coumadin. Await CT-guided lung biopsy that will be done today. He will also be scheduled for a PET CT as an outpatient to stage the possible lung cancer that has a new development. Thank you for the consult, discuss with the patient as well as at length. Thank you for the consult. We will follow. Kamini Zavala MD GISELLA
[2016-11-23] MEDS: Levalbuterol 1.25 MG/3 ML Inhal Soln UD IH SCH ×3 (06:10→14:06)
[2016-11-23] MEDS: Sodium Chloride 0.45% 1,000 ML IV SCH (06:14)
[2016-11-23] MEDS: Pantoprazole 40 mg EC Tab PO SCH (06:14)
[2016-11-23 07:14] LABS: HEMOGLOBIN 13.7 gm/dL (14.0-18.0); MEAN CELL VOLUME 88.8 fL (80.0-105.0); MEAN CORPUSCULAR HGB CONC 33.7 g/dl (31.0-37.0); MEAN PLATELET VOLUME 8.8 fl (7.0-11.0); PLATELET COUNT 203 10^3/uL (120.0-450.0); RBC 4.57 10^6/uL (3.5-6.1); RED CELL DISTRIBUTION WIDTH 17.1 % (11.5-14.5); WHITE BLOOD COUNT 15.6 10^3/ul (4.5-11.0)
[2016-11-23 07:18] LABS: INR 1.24 (0.93-1.08); PROTHROMBIN TIME 13.4 Seconds (9.9-11.8)
[2016-11-23] MEDS: Budesonide 0.5 mg/2 ml Inhal Susp UD IH SCH (07:24)
[2016-11-23 07:27] LABS: BLOOD UREA NITROGEN 25 mg/dL (7-21); CALCIUM 8.3 mg/dL (8.4-10.5); GFR AFRICAN-AMERICAN > 60; GFR NON-AFRICAN AMERICAN 54
[2016-11-23 09:06] LABS: BAND 1 % (0-2); LYMPHOCYTE 65 % (22.0-35.0); MONOCYTE 1 % (1.0-6.0); NEUTROPHIL 32 % (50.0-70.0); NUCLEATED RED BLOOD CELL 1 %; PLATELET ESTIMATE NORMAL (NORMAL)
[2016-11-23 09:07] VITALS: TEMP 98.2
[2016-11-23] MEDS: Cefepime IV 2 gm in NS 2 GM/100 ML BAG IVPB SCH (09:23)
[2016-11-23 09:27] VITALS: BP 125/74; PULSE 65
--- NOTE | 2016-11-23 10:48 | PN ---
DATE: 11/23/2016 SUBJECTIVE: The patient appears very comfortable this morning. He is not short of breath at rest. PHYSICAL EXAMINATION VITAL SIGNS: Temperature is 97.5, pulse 77, respirations 18, and blood pressure 99/62. Oxygen saturation on room air is 97%. HEENT: Normocephalic and atraumatic. No JVD. CARDIOVASCULAR: Positive S1 and S2. No S3 gallop. LUNGS: Clear bilaterally. EXTREMITIES: Mild edema. No cyanosis. No clubbing. Calves are nontender to palpation. GASTROINTESTINAL: Abdomen is soft, nontender, nondistended. Bowels sounds are positive. SKIN: No acute rash. NEUROLOGIC: Limited at the present time. IMPRESSION: 1. Pulmonary embolism. 2. Chronic obstructive pulmonary disease. 3. Obstructive sleep apnea. 4. Narcolepsy. 5. Left upper lobe opacity. PLAN: The patient appears very comfortable this morning. He is not short of breath at rest. He feels much better overall. Oxygen saturation on room air is now 97%. On physical exam, his lungs remain clear. I will continue with the current nebulizer treatments and low dose oral steroids for now. I did discussed the case with the nurse and the patient at length. Apparently, at the time of biopsy, the left upper lobe opacity was decreased in size. Therefore, the biopsy was not done -- as per Dr. Choco Black. I have also reviewed the note by Dr. Zavala -- oncology. She will be following the patient and arrange for a PET scan-- as an outpatient. The patient will also be followed by my partner (as an outpatient) -- Dr. Morales. The patient has been transitioned to [facility] as per Dr. Zavala. Clinical status of the patient is significantly improved overall. I will discuss the above with the attending physician. Harpreet Mejia MD MTDJoseph
--- NOTE | 2016-11-23 13:23 | CP.PCM.PCO ---
Physician Communication Note - Physician Communication Note Physician Communication Note: SO2% 94-96% with ambulation no SOB tolerated well h/o COPD
--- NOTE | 2016-11-23 14:02 | CT ---
PROCEDURE: CT Abdomen and Pelvis without intravenous contrast HISTORY: inc wbc COMPARISON: None. TECHNIQUE: Without contrast. Contrast Dose: Radiation dose: Total exam DLP = 1644 mGy-cm. This CT exam was performed using one or more of the following dose reduction techniques: Automated exposure control, adjustment of the mA and/or kV according to patient size, and/or use of iterative reconstruction technique. FINDINGS: LOWER THORAX: Unremarkable. LIVER: Unremarkable. No gross lesion or ductal dilatation. GALLBLADDER AND BILE DUCTS: Unremarkable. PANCREAS: Scattered calcifications are seen in the pancreas consistent with chronic pancreatitis. There is no significant pancreatic atrophy or dilatation of the pancreatic duct. SPLEEN: Unremarkable. ADRENALS: Unremarkable. No mass. KIDNEYS AND URETERS: Unremarkable. No hydronephrosis. No solid mass. VASCULATURE: Unremarkable. No aortic aneurysm. BOWEL: Unremarkable. No obstruction. No gross mural thickening. APPENDIX: Unremarkable. Normal appendix. PERITONEUM: Unremarkable. No free fluid. No free air. LYMPH NODES: Scattered mesenteric and retroperitoneal lymph nodes are seen which are mildly enlarged BLADDER: Unremarkable. REPRODUCTIVE: Unremarkable. BONES: No acute fracture. OTHER FINDINGS: None. IMPRESSION: No acute findings
--- NOTE | 2016-11-23 15:48 | CT ---
PROCEDURE: Limited chest CT HISTORY: Ex-smoker. COPD. 2 cm opacity in the superior segment left lower lobe. PHYSICIAN(S): Choco Black MD. TECHNIQUE: The patient was placed prone on the CT scan in anticipation of a biopsy. 3 mm slices were obtained through the superior segment of left lower lobe. Comparison is made to the prior CT scan. FINDINGS: There is a poorly defined 2.5 cm opacity in the superior segment of the left lower lobe. Appearance is changed considerably when compared to the prior CT scan. The opacity is less well defined and appears inflammatory in nature. Given the interval change in the appearance of the superior segment opacity, a CT biopsy was not performed. IMPRESSION: Interval improvement in the appearance of the 2.5 cm opacity in the superior segment of the left lower lobe. A follow-up CT scan in 3 months to document resolution is commended. No biopsy is performed at this time.
--- NOTE | 2016-11-23 17:03 | PN ---
SUBJECTIVE: The patient sitting up in bed. Denies any complaints. He had a CT-guided lung biopsy yesterday and there is no shortness of breath. No complaints at this point. PHYSICAL EXAMINATION: VITAL SIGNS: Reveal a temperature of 98.2, pulse of 65, respiratory rate of 18 and blood pressure 125/74. GENERAL: The patient is an elderly pleasant male, sitting up in bed, in no acute distress. HEAD AND NECK: Normocephalic, atraumatic. Eyes: Pupils equal, round, and reactive to light and accommodation. Extraocular muscles are intact. There is no pallor. No icterus is noted. NECK: Supple with no adenopathy. No JVD. No thyromegaly. LUNGS: Clear to auscultation bilaterally with no rales or rhonchi. CARDIOVASCULAR: S1 and S2 heard. ABDOMEN: Positive bowel sounds, soft, nontender, nondistended. No organomegaly is palpated. EXTREMITIES: There is bilateral pitting edema but only 1+. LABORATORY DATA: His white count is 15.6, hemoglobin 13.7, hematocrit of 40.6, *------* and platelet count of 203. Chemistries are within normal limits except for BUN and creatinine which is elevated at 25 and 1.3. All other electrolytes are within normal limits. CT of the abdomen and pelvis today also reveals mild lymph node enlargement consistent with his known history of CLL. ASSESSMENT AND PLAN: Elderly male with multiple medical problems including history of stage 0 chronic lymphocytic leukemia, which has been stable with white counts ranging in the *------*, history of prostate cancer for which he has undergone treatment with prostatectomy over a year ago, now finding of new lungs mass. A CT-guided lung biopsy was done yesterday. We will arrange for a PET CT as an outpatient. Also advised the patient to follow up as an outpatient next week. There is concern for a PE on the VQ scan on this admission. He was initially started on heparin, Coumadin, but we prefer the patient stay on Eliquis for long-term anticoagulation, which he was just started on last night and will continue as an outpatient. He is to follow up with me next week as an outpatient. Thank you for consult. We will follow. Kamini Zavala MD [facility] # [id number]
--- NOTE | 2016-11-23 17:47 | PN ---
DATE: 11/23/2016 REASON FOR CONSULTATION: Follow up PE, endobronchial lesion, status post lung biopsy, CT-guided biopsy. SUBJECTIVE: The patient denies any chest pain, shortness of breath, or any palpitation. is at the bedside. Obviously finding the patient is lying flat on the bed, had abdominal ultrasound this morning. PHYSICAL EXAMINATION: As follows: VITAL SIGNS: Temperature afebrile, heart rate 65, blood pressure 125/74. HEENT: PERRLA intact. NECK: Supple. No carotid bruits or thyromegaly. CHEST: Clear to auscultation. HEART: S1 and S2, regular. ABDOMEN: Soft. EXTREMITIES: Clubbing and cyanosis negative. LABORATORY DATA: Blood workup as follows: WBC 15.6, hemoglobin 13, hematocrit 40.6, and platelet count 203. Chemistry showed sodium 135, potassium 4, chloride 104, CO2 of 24, anion gap of 12, BUN 25, creatinine 1.3, calcium 8.3. Abdomen CT chest, no acute finding. IMPRESSION: A 76-year-old male obese with possible chronic obstructive pulmonary disease, obstructive sleep apnea, admitted with acute pulmonary embolism. Workup shows some endobronchial possible lesion. CT-guided biopsy was planned yesterday, but it was not proceeded because size of opacity was decreased; followup PET scan is recommended. The patient lying flat; had echocardiography done on 06/07/2016 that shows preserved LV function, ejection fraction of 65% to 70%, trace aortic regurgitation, mild mitral regurgitation, [id number] tricuspid regurgitation, RV systolic pressure of 88 with severe pulmonary hypertension consistent with acute pulmonary embolism. When compare to the previous echo, RV systolic pressure of 22 with significant improved after the pulmonary embolism. Borderline RV strain. RECOMMENDATIONS: Continue Coumadin. Resume back. CV status stable. For risk status, I can consider stress test as an outpatient in 3 months. Discussed with the patient and discussed with the . Eliquis has been resumed for PE. We will follow with you. Thank you doctor for providing me the opportunity in taking care of this patient. Guerita Kern MD
--- NOTE | 2016-11-24 01:57 | PN ---
DATE: 11/23/2016 SUBJECTIVE: The patient was seen here in room 560, bed 1, in no acute distress and nontoxic. PHYSICAL EXAMINATION VITAL SIGNS: Temperature is 98, blood pressure is 120/70, respiratory rate of 80. HEENT: Unremarkable. NECK: Supple. LUNGS: Decreased breath sounds. HEART: Normal S1, S2. ABDOMEN: Soft. LABORATORY DATA: Reveals a white count is down to 15,000 with 32% neutrophils, 65% lymphocytes, and coagulation is noted. Chemistries reveal a BUN of 25, creatinine of 1.3. Immunology is noted. JAK2 is not detected in the peripheral smear and blood cultures are negative. X-ray of the abdomen and pelvis with no acute findings. Procalcitonin is 0.06. ASSESSMENT AND PLAN: This is a 76-year-old male with hypertension, benign prostatic hypertrophy, prostate cancer, morbid obesity, body mass index of 41, systemic inflammatory response syndrome, with chronic obstructive lung disease, and patient is to be discharged on p.o. antibiotics and to be followed up with Hematology and follow up CBC and Dr. Kamini Zavala's note is reviewed. The patient has a known chronic lymphocytic leukemia. Sekou Diehl MD
--- NOTE | 2016-11-24 05:08 | DS ---
HISTORY OF PRESENT ILLNESS: The patient is 76 years old who came in with extreme shortness of breath. He was found to have positive D-dimer of 7.59. Since he has renal insufficiency with creatinine of 1.5 on day of admission, he underwent V/Q scan that shows high probability, so the patient was started on heparin. He was started on nebulizer treatment and he started to do well and Dr. Morales evaluated the patient and CT scan of the chest done that shows questionable nodule, 8 x 22 mm, in the superior segment of left lower lobe. I discussed with the patient that we can discharge him and he can have CAT scan done as an outpatient. I ordered repeat CT in 3 months and if it is still bigger, in bigger, he then needs to be biopsied, but the patient insisted that he wanted to have a biopsy done. So, the patient was evaluated by Dr. Choco Black who took him for procedure, but when he repeated the CT scan, the size had decreased, so his biopsy was postponed. The patient was switched to Eliquis and being discharged home today on p.o. doxycycline. PHYSICAL EXAMINATION: GENERAL: He is awake, alert and communicative, ambulatory. VITAL SIGNS: Pulse ox 97% on room air, he is afebrile, pulse 65, respirations 18 and blood pressure 125/74. LUNGS: Bilateral diffusely decreased breath sounds. HEART: S1 and S2 audible. ABDOMEN: Soft, obese, and nontender. No rebound. No guarding. NEUROLOGIC: The patient is awake, alert, communicative, ambulatory. LABORATORY DATA: Sodium 135, potassium 4.7, chloride 104, CO2 of 24, BUN 25, creatinine 1.3 and blood sugar of 95. WBC 15.6, it is trending down on 11/21/2016, it was 28,000; hemoglobin 13.7; INR 40.6; platelet of 203. Chemistry as mentioned above. ASSESSMENT: 1. Pulmonary embolism, workup negative so far. 2. Rule out CLL. 3. Lung nodule, probably infectious. 4. Morbid obesity. 5. Sleep apnea. 6. Chronic obstructive pulmonary disease. PLAN: The patient is being discharged home on doxycycline 100 mg twice a day for 5 days, prednisone 10 mg daily for 5 days. He will followup with Dr. Zavala and he will followup with Dr. Morales as an outpatient and he will resume his medication that includes Eliquis 5 twice a day and we will give him metoprolol 25 daily and the patient will be followed by Dr. Zavala, Dr. Morales and Dr. Morris as an outpatient. Shyam Looney MD
[2016-11-24] MEDS ORDERED: Metoprolol Succinate 25 mg XL Tab PO SCH (08:00)
== END 2016-11-23 17:00 | disposition home or self-care (01) | DRG 176 ==
LOC: ED 08:13 → ERH 14:50 → 2RNO 20:22 → 5RNO 11-19 14:14
PROVIDERS: ADMIT Internal Medicine; ATTEND Internal Medicine
DX: I26.99 Other pulmonary embolism without acute cor pulmonale (principal); R65.10 Systemic inflammatory response syndrome (SIRS) of non-infectious origin without acute organ dysfunction; Z68.41 Body mass index [BMI] 40.0-44.9, adult; R91.1 Solitary pulmonary nodule; E87.5 Hyperkalemia; E11.22 Type 2 diabetes mellitus with diabetic chronic kidney disease; J44.9 Chronic obstructive pulmonary disease, unspecified; N40.0 Benign prostatic hyperplasia without lower urinary tract symptoms; I12.9 Hypertensive chronic kidney disease with stage 1 through stage 4 chronic kidney disease, or unspecified chronic kidney disease; G47.33 Obstructive sleep apnea (adult) (pediatric); N18.9 Chronic kidney disease, unspecified; G47.419 Narcolepsy without cataplexy; E66.01 Morbid (severe) obesity due to excess calories; I08.3 Combined rheumatic disorders of mitral, aortic and tricuspid valves; J98.4 Other disorders of lung; D72.829 Elevated white blood cell count, unspecified; T38.0X5A Adverse effect of glucocorticoids and synthetic analogues, initial encounter; Z87.891 Personal history of nicotine dependence; Z85.46 Personal history of malignant neoplasm of prostate; Z79.84 Long term (current) use of oral hypoglycemic drugs; Z92.3 Personal history of irradiation; Z85.6 Personal history of leukemia